=== PATIENT | male | born 1945 | race African-American/Black ===

== ENCOUNTER → 2017-01-20 | Outpatient (CLI) | payer MEDICARE, OTHER ==
[~2017-01-20] MED LIST: AMLODIPINE BESYL5 MG ORAL; ASPIR 8181 MG ORAL; BACTRIM DS TAB1 EAC1 ORAL; CLINDAMYCIN HC300 MG ORAL; IBUPROFEN600 MG ORAL; IRON325 M1 PO; METHADONE HCL10 MG PO; METHADONE HCL5 MG PO; METRONIDAZOLE500 MG ORAL; NORCO 5-325 TA1 EACH ORAL; TERAZOSIN HCL10 MG ORAL
--- NOTE | 2017-01-20 12:34 | Diagnostic Imaging Report ---
Indications: Abdominal pain, hepatitis C Technique: Continuous helical CT imaging of the abdomen and pelvis was performed with automatic exposure control following administration of oral and intravenous nonionic iodine contrast, on a Siemens sensation [address] scanner. Axial, coronal, and sagittal images were reconstructed at 5 mm slice thickness. CTDI volume(s): 15 mGy Total DLP: 663 mGy-cm Findings: Comparison: None Oral contrast has passed throughout the gastrointestinal tract to the level of the ascending colon. Stomach, small bowel nondilated. Appendix unremarkable. Increased feces throughout colon to rectum. No obvious mural thickening, adjacent stranding, extraluminal gas or loculated fluid collections are identified. Minimal free fluid is present in the dependent portion of the pelvis. Liver demonstrates relative enlargement of the lateral segment of its left lobe. Bile ducts mildly dilated, common bile duct measures up to 10 mm in diameter within the pancreatic head. Pancreatic duct dilated to 5 mm. There is a 1 cm nodular soft tissue prominence at the level of the major papilla into which the common bile duct inserts. No associated stone demonstrated. Multiple circumscribed low attenuation foci are scattered throughout a normal size spleen. The largest, 8 mm diameter, has the appearance of a cyst. Smaller lesions are too small to accurately characterize. 15 mm circumscribed low-attenuation mass in lateral limb of left adrenal gland. Left kidney rotated horizontally otherwise unremarkable in appearance. Scattered arterial mural calcifications. Partially distended urinary bladder demonstrates apparent mild diffuse mural thickening. Its floor indented by prominent, heterogeneous prostate. No obvious flow-limiting stenosis or occlusion. Surgical clips and anterior abdominal wall in area of mild diastases of the linea alba. Left rectus abdominis muscle focally atrophic at this level. Small left inguinal hernia contains fat and a small amount of fluid. Remainder visualized abdominopelvic anatomy demonstrates no other obvious abnormality. Small irregular pleural-based linear densities in both lung bases. Multilevel disc space narrowing with marginal osteophyte formation, vacuum phenomenon, facet sclerosis and hypertrophy in lumbar, lower thoracic spine. Impression: Mild dilation of bile and pancreatic ducts to the level of focally prominent major papilla. Acuity is indeterminate. Duct stricture, papillitis, or small neoplasm not excludable. Endoscopic correlation suggested. Minimal ascites, nonspecific No other evidence of acute abdominopelvic disease Liver morphology suggests underlying chronic hepatocellular disease. No evidence of cirrhosis. Multiple splenic lesions, the largest of which appears to represent cyst; smaller indeterminate. Other etiologies including neoplasm not excludable. 1.5 cm left adrenal mass probably but not definitely adenoma. MRI correlation suggested. 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
== END | disposition home or self-care (01) ==
LOC: CAT 09:08
DX: R18.8 Other ascites (principal); D73.89 Other diseases of spleen; N28.83 Nephroptosis; I70.90 Unspecified atherosclerosis; K40.90 Unilateral inguinal hernia, without obstruction or gangrene, not specified as recurrent; M47.9 Spondylosis, unspecified
CPT/HCPCS: 74177; Q9967

== ENCOUNTER 2017-02-03 16:08 | Inpatient (IN) | payer MEDICARE, OTHER ==
[~2017-02-03] VITALS: Ht 182.9 cm; Wt 68.9 kg
[~2017-02-03 16:08] MED LIST changes: -ASPIR 8181 MG ORAL; -IRON325 M1 PO; -METHADONE HCL10 MG PO; -METHADONE HCL5 MG PO; -METRONIDAZOLE500 MG ORAL; -TERAZOSIN HCL10 MG ORAL
[2017-02-03] MEDS ORDERED: Morphine Sulfate 4mg/ml Inj IM ONE (18:15)
[2017-02-03 18:28] LABS: BASOPHILS % (AUTO) 0.5 % (0.0-2.0); LYMPHOCYTES % (AUTO) 4.6 % (20.0-45.0); MEAN CORPUSCULAR HEMOGLOBIN 27.4 PG (27.0-31.0); MEAN CORPUSCULAR VOLUME 86 FL (80-99); MEAN PLATELET VOLUME 5.9 FL (6.5-10.1); PLATELET COUNT 289 K/UL (150-450); RED BLOOD COUNT 3.19 M/UL (4.70-6.10); RED CELL DISTRIBUTION WIDTH 14.9 % (11.6-14.8); WHITE BLOOD COUNT 15.9 K/UL (4.8-10.8)
[2017-02-03 18:43] LABS: ALANINE AMINOTRANSFERASE 10 U/L (3-41); ALBUMIN/GLOBULIN RATIO 0.8 (1.0-2.7); ANION GAP 14 (5-15); ASPARTATE AMINO TRANSFERASE 14 U/L (5-40); CALCIUM 8.7 mg/dL (8.6-10.2); CARBON DIOXIDE 28 mEQ/L (20-30); CHLORIDE 93 mEQ/L (98-107); CREATININE 1.2 mg/dL (0.7-1.2); GLOMERULAR FILTRATION RATE > 60 mL/min (>60); HEMOLYSIS 1; LIPASE 9 U/L (< 60); POTASSIUM 3.7 mEQ/L (3.4-4.9); SODIUM 135 mEQ/L (135-145); TOTAL PROTEIN 6.7 g/dL (6.6-8.7); TROPONIN I < 0.30 ng/mL (<=0.30)
--- NOTE | 2017-02-03 18:44 | Emergency Room Report ---
History of Present Illness General Chief Complaint: Abdominal Pain Source: Patient, Medical Record (Lakshmi Meléndez) Present Illness HPI 71-year-old male presents emergency department complaining of abdominal pain with nausea and vomiting progressive over the course of one week. Patient states that his primary care doctor recommended that he go to the ER for evaluation. Patient has a history of diverticulosis. Patient denies blood in the vomit or stools patient denies black tarry stools. Patient states that he was told that he is anemic and his last hemoglobin was 10. he also states that he was told he has abnormalities with his pancreas. he states that for the course of one week he describes his stomach as distended and "hard like a bag of bricks." Patient denies history of constipation and states he has had a total of 3 loose bowel movements. Patient denies night sweats, fevers, chills or significant changes in weight. Patient denies weakness. Patient states he is having a difficulty time keeping down food and fluids. Patient also reports intermittent heartburn and states he has a history of acid reflux. Pt. reports hx of COPD and smoking. Denies CP, Palpitations, LOC, AMS, dizziness, Changes in Vision, Sensation, paresthesias, or a sudden severe headache. (Lakshmi Meléndez) Allergies: Coded Allergies: No Known Allergies (Unverified , 08/06/15) Patient History Past Medical History: see triage record Past Surgical History: none Pertinent Family History: none Social History: Reports: smoking Immunizations: UTD Reviewed Nursing Documentation: PMH: Agreed, PSxH: Agreed (Lakshmi Meléndez) Nursing Documentation-PMH Hx Hypertension: Yes Hx COPD: Yes - and Emphysema (Lakshmi Meléndez P.ANegar) Review of Systems All Other Systems: negative except mentioned in HPI (Lakshmi Meléndez P.Jen) Physical Exam Vital Signs Date Time Temp Pulse Resp B/P Pulse Ox O2 Delivery O2 Flow Rate FiO2 02/03/17 16:38 98.4 89 16 133/71 99 Room Air Sp02 EP Interpretation: reviewed, normal General Appearance: no apparent distress, alert, GCS 15, non-toxic Head: normocephalic, atraumatic Eyes: bilateral eye PERRL, bilateral eye normal inspection ENT: hearing grossly normal, normal pharynx, no angioedema, normal voice Neck: full range of motion, supple/symm/no masses Respiratory: chest non-tender, lungs clear, normal breath sounds, speaking full sentences, wheezing - scant bilateral expiratory wheezes Cardiovascular #1: regular rate, rhythm, no edema Gastrointestinal: normal bowel sounds - hyperactive bowel sounds in all 4 quadrants, non tender, no pulsatile mass, no rebound, guarding, other - no peritoneal signs, abdomen is not appreciably distended, pt. is guarding. Rectal: deferred Genitourinary: normal inspection, no CVA tenderness Musculoskeletal: back normal, gait/station normal, normal range of motion, non- tender, no calf tenderness Neurologic: alert, oriented x3, responsive, motor strength/tone normal, sensory intact, cerebellar normal, normal gait, speech normal Psychiatric: judgement/insight normal, memory normal, mood/affect normal, no suicidal/homicidal ideation Skin: normal color, no rash, warm/dry, well hydrated Lymphatic: no adenopathy (Lakshmi Meléndez.Jen) Medical Decision Making PA Attestation Dr. Zafar is my supervising Physician whom patient management has been discussed with. (Lakshmi Meléndez P.ANegar) Medicare Attestation Please refer to the initial note for the history examined the presentation I do agree with Lakshmi's workup and evaluation And the patient will be amended for further inpatient care (BANDAR ZAFAR D.O.) Diagnostic Impression: Primary Impression: Abdominal pain Qualified Codes: R10.84 - Generalized abdominal pain Additional Impressions: Anemia Qualified Codes: D64.9 - Anemia, unspecified Leukocytosis Qualified Codes: D72.829 - Elevated white blood cell count, unspecified ER Course 71-year-old male presents emergency department complaining of abdominal pain with nausea and vomiting progressive over the course of one week. Patient states that his primary care doctor recommended that he go to the ER for evaluation. Patient has a history of diverticulosis. Patient denies blood in the vomit or stools patient denies black tarry stools. Patient states that he was told that he is anemic and his last hemoglobin was 10. he also states that he was told he has abnormalities with his pancreas. he states that for the course of one week he describes his stomach as distended and "hard like a bag of bricks." Patient denies history of constipation and states he has had a total of 3 loose bowel movements. Patient denies night sweats, fevers, chills or significant changes in weight. Patient denies weakness. Patient states he is having a difficulty time keeping down food and fluids. Patient also reports intermittent heartburn and states he has a history of acid reflux. Ddx considered but are not limited to Diverticulitis/losis, acute appendicitis, diarrhea, UC, PUD, GE, pancreatitis, gallstone, hepatitis Vital signs: are WNL, pt. is afebrile, non tachycardic, non-tachypneic, NAD H&PE are most consistent with ORDERS: -EK BPM NSR, no acute ST changes, interpreted by Dr. Zafar. CBC,: Leukocytosis at 15.6, anemia hb 8.4 CMP: mild Hypochloremia. Lipase: WNL (9) UA: few yeast and bacteria -Troponin: WNL less than 0.3 - CK-MB: unremarkable -Total Ck: unremarkable -CXR: Pending - Blood Cultures x 2 : Pending - US abdominal Complete: dilated CBD no stones, intrahepatic ducts dilatations, no GB stones, no free Fluid, negative murphys. ED INTERVENTIONS: -Pt. is a difficult draw, and required lab draw. -4mg Zofran PO -4Mg Morphine IM -500cc NS- Pending, IV access required - Unasyn IV- Pending, IV access required DISPOSITION: at this time pt. will be admitted to Dr. Morfin for abdominal pain , leukocytosis, and anemia. Dr. Morfin agreed to admit the pt. and to continue pt. care management. Labs Test 02/03/17 18:00 02/03/17 18:21 Urine Color Astrid Urine Appearance Clear Urine pH 5 (4.5-8.0) Urine Specific [place] 1.020 (1.005-1.035) Urine Protein 2+ (NEGATIVE) Urine Glucose (UA) Negative (NEGATIVE) Urine Ketones 1+ (NEGATIVE) Urine Occult Blood 2+ (NEGATIVE) Urine Nitrite Negative (NEGATIVE) Urine Bilirubin 1+ (NEGATIVE) Urine Ictotest Negative Urine Urobilinogen 1 MG/DL (0.0-1.0) Urine Leukocyte Esterase 1+ (NEGATIVE) Urine RBC 2-4 /HPF (0 - 0) Urine WBC 0-2 /HPF (0 - 0) Urine Squamous Epithelial Cells None /LPF (NONE/OCC) Urine Amorphous Sediment Few /LPF (NONE) Urine Bacteria Few /HPF (NONE) Urine Yeast Occasional /HPF (NONE) White Blood Count 15.9 K/UL (4.8-10.8) Red Blood Count 3.19 M/UL (4.70-6.10) Hemoglobin 8.7 G/DL (14.2-18.0) Hematocrit 27.3 % (42.0-52.0) Mean Corpuscular Volume 86 FL (80-99) Mean Corpuscular Hemoglobin 27.4 PG (27.0-31.0) Mean Corpuscular Hemoglobin Concent 32.0 G/DL (32.0-36.0) Red Cell Distribution Width 14.9 % (11.6-14.8) Platelet Count 289 K/UL (150-450) Mean Platelet Volume 5.9 FL (6.5-10.1) Neutrophils (%) (Auto) 82.0 % (45.0-75.0) Lymphocytes (%) (Auto) 4.6 % (20.0-45.0) Monocytes (%) (Auto) 12.0 % (1.0-10.0) Eosinophils (%) (Auto) 1.0 % (0.0-3.0) Basophils (%) (Auto) 0.5 % (0.0-2.0) Prothrombin Time 11.7 SEC (9.30-11.50) Prothromb Time International Ratio 1.1 (0.9-1.1) Activated Partial Thromboplast Time 30 SEC (23-33) Sodium Level 135 mEQ/L (135-145) Potassium Level 3.7 mEQ/L (3.4-4.9) Chloride Level 93 mEQ/L (98-107) Carbon Dioxide Level 28 mEQ/L (20-30) Anion Gap 14 (5-15) Blood Urea Nitrogen 13 mg/dL (7-23) Creatinine 1.2 mg/dL (0.7-1.2) Estimat Glomerular Filtration Rate > 60 mL/min (>60) Glucose Level 89 mg/dL (74-106) Calcium Level 8.7 mg/dL (8.6-10.2) Total Bilirubin 0.3 mg/dL (0.0-1.2) Aspartate Amino Transf (AST/SGOT) 14 U/L (5-40) Alanine Aminotransferase (ALT/SGPT) 10 U/L (3-41) Alkaline Phosphatase 67 U/L (40-129) Total Creatine Kinase 189 U/L (38-174) Creatine Kinase MB 2.2 ng/mL (< 6.7) Creatine Kinase MB Relative Index 1.1 Troponin I < 0.30 ng/mL (<=0.30) Total Protein 6.7 g/dL (6.6-8.7) Albumin 3.1 g/dL (3.5-5.2) Globulin 3.6 g/dL Albumin/Globulin Ratio 0.8 (1.0-2.7) Lipase 9 U/L (< 60) (Lakshmi Meléndez) EKG Diagnostic Results EP Interpretation: by Dr. Zafar Rate: normal - 68 BPM Rhythm: NSR ST Segments: no acute changes ASA given to the pt in ED: No PA Scribe Text interpreted by Dr. Zafar (Lakshmi Meléndez) Last Vital Signs Date Time Temp Pulse Resp B/P Pulse Ox O2 Delivery O2 Flow Rate FiO2 02/03/17 16:38 98.4 89 16 133/71 99 Room Air (Lakshmi Meléndez) Disposition: ADMITTED INPATIENT Condition: Serious Referrals: KINGSTON MORFIN (PCP) Lakshmi Meléndez Feb 03, 2017 18:44 BANDAR ZAFAR D.O. Feb 03, 2017 19:39
[2017-02-03 18:51] LABS: APPEARANCE,URINE CLEAR; KETONES,URINE 1+ (NEGATIVE); LEUKOCYTE ESTERASE ,URINE 1+ (NEGATIVE); NITRITE,URINE NEGATIVE (NEGATIVE); PH,URINE 5 (4.5-8.0); PROTEIN,URINE 2+ (NEGATIVE); UROBILINOGEN,URINE 1 MG/DL (0.0-1.0)
[2017-02-03 18:53] LABS: CKMB 2.2 ng/mL (< 6.7)
[2017-02-03 18:59] LABS: AMORPHOUS SEDIMENT,UR FEW /LPF; BACTERIA,URINE FEW /HPF; WBC,URINE 0-2 /HPF (0 - 0)
[2017-02-03 19:00] LABS: ICTOTEST NEGATIVE; YEAST,URINE OCCASIONAL /HPF
[2017-02-03 19:39] LABS: INR 1.1 (0.9-1.1); PROTHROMBIN TIME 11.7 SEC (9.30-11.50)
[2017-02-03 19:52] VITALS: BP 122/67
[2017-02-03] MEDS ORDERED: Piperacillin/Tazobactam 3.375 GM in NS 110 ML IVPB ONE (20:15)
[2017-02-03 23:40] VITALS: BP 122/65
[2017-02-04] VITALS (7 sets, daily range): BP systolic 117–137; BP diastolic 65–84
[2017-02-04] MEDS ORDERED: Zosyn 3.375gm inj ONE (00:06)
[2017-02-04] MEDS ORDERED: IRON325 M1 PO (02:19)
[2017-02-04] MEDS ORDERED: METHADONE HCL10 MG PO (02:19)
[2017-02-04] MEDS ORDERED: ASPIR 8181 MG ORAL (02:19)
[2017-02-04] MEDS ORDERED: TERAZOSIN HCL10 MG ORAL (02:19)
[2017-02-04] MEDS ORDERED: DuoNeb 0.5-3(2.5)mg/3ml neb HHN PRN (04:00)
[2017-02-04 08:55] LABS: BASOPHILS % (AUTO) 0.5 % (0.0-2.0); EOSINOPHILS % (AUTO) 1.7 % (0.0-3.0); LYMPHOCYTES % (AUTO) 8.3 % (20.0-45.0); MEAN CORPUSCULAR HEMOGLOBIN 26.1 PG (27.0-31.0); MEAN CORPUSCULAR HGB CONC 30.3 G/DL (32.0-36.0); MEAN CORPUSCULAR VOLUME 86 FL (80-99); MONOCYTES % (AUTO) 15.5 % (1.0-10.0); PLATELET COUNT 334 K/UL (150-450); RED BLOOD COUNT 3.29 M/UL (4.70-6.10); RED CELL DISTRIBUTION WIDTH 14.6 % (11.6-14.8)
[2017-02-04] MEDS: Heparin 5000 units/ml inj SUBQ SCH ×2 (09:00→20:20)
[2017-02-04 09:13] LABS: FERRITIN 92 ng/mL (10-230); PSA TOTAL 1.8 ng/mL (< 4.5)
[2017-02-04 09:25] LABS: ALANINE AMINOTRANSFERASE 9 U/L (3-41); ALBUMIN/GLOBULIN RATIO 0.8 (1.0-2.7); ANION GAP 15 (5-15); ASPARTATE AMINO TRANSFERASE 12 U/L (5-40); CALCIUM 8.5 mg/dL (8.6-10.2); CARBON DIOXIDE 27 mEQ/L (20-30); CHLORIDE 96 mEQ/L (98-107); CHOLESTEROL 91 mg/dL (< 200); CHOLESTEROL/HDL RATIO 3.5 (3.3-4.4); CREATININE 1.1 mg/dL (0.7-1.2); GLOMERULAR FILTRATION RATE > 60 mL/min (>60); LDL CHOLESTEROL (CALC.) 52 mg/dL (60-99); POTASSIUM 3.8 mEQ/L (3.4-4.9); SODIUM 138 mEQ/L (135-145); TOTAL PROTEIN 6.3 g/dL (6.6-8.7)
[2017-02-04] MEDS ORDERED: METHADONE HCL5 MG PO (10:22)
--- NOTE | 2017-02-04 11:24 | Diagnostic Imaging Report ---
Indication: Right upper quadrant pain, nausea, vomiting Technique: Gooden-scale and duplex images of the upper abdomen were obtained Comparison: Reference made to CT scan of 01/20/2017 Findings: . Gallbladder is unremarkable, without stones, wall thickening, nor pericholecystic fluid. Sonographic Zambrano's sign is negative. Common bile duct measures 10 mm in diameter. There is central intrahepatic biliary ductal dilatation.. Liver demonstrates normal echogenicity, no focal abnormality. Portal vein and hepatic veins are patent.. Pancreas is obscured by bowel gas. Spleen is unremarkable. Left kidney measures 11 cm in length. Right kidney measures 10.7 cm length. Both kidneys demonstrate normal echogenicity. There is no hydronephrosis. No focal abnormality. Abdominal aorta is partially obscured by bowel gas, visualized portions are non-aneurysmal. Impression: Biliary ductal dilatation, etiology not demonstrated. Also described on prior CT scan Negative for gallstones No other significant abnormality Note inability to visualized portions of the pancreas and abdominal aorta
--- NOTE | 2017-02-04 11:39 | Diagnostic Imaging Report ---
Indication: COUGH Technique: One view of the chest Comparison: 02/21/2015 Findings: Lungs and pleural spaces are clear. Heart size is normal. Aorta is tortuous. No significant change Impression: No acute process
--- NOTE | 2017-02-04 15:06 | Diagnostic Imaging Report ---
Indication: MASS abdominal and pelvic pain Technique: Coronal and axial T1 fast spin echo, coronal and axial FSE IR, sagittal and axial T2 FRFSE, coronal T2 FRFSE with fat saturation images of the pelvis. No IV contrast, per referring physician request Comparison: Reference made to CT abdomen pelvis dated 01/20/2017 Findings: Enteric structures are better appreciated on prior CT scan. There is a small amount of fluid within the pelvis that was not evident previously. The prostate measures 3.5 cm transverse by 2.5 cm AP by 3.6 cm craniocaudad. High T2 signal is seen within the subcutaneous fat of the bilateral buttocks, as well as extending into the superficial gluteal musculature.. Similar signal abnormality is also seen in the right hip. There is thickening and increased T2, decreased T1 signal of the scrotal wall, best appreciated on coronal images. Impression: Increased T2 signal within the subcutaneous fat of the bilateral buttocks, extending into the gluteal musculature, with similar findings also in the lateral right hip. Note that edema in this area is also demonstrated in retrospect on prior CT scan. Findings are nonspecific, could represent dependent edema versus cellulitis/myositis. Correlate with clinical findings Free pelvic fluid. Of uncertain significance, but not physiologic in a male patient. Heterogeneous signal within the prostate centrally, likely represents mild benign prostatic hypertrophy changes. Scrotal wall edema. Correlate with clinical findings
[2017-02-04] MEDS: Aspirin Baby 81mg ORAL SCH (15:14)
--- NOTE | 2017-02-04 16:35 | Diagnostic Imaging Report ---
Indication: Abdominal pain, history of hepatitis C, biliary ductal dilatation and left adrenal nodule seen on prior CT scan Technique: Coronal and axial single shot fast spin-echo breath-hold, axial T2 FRFSE, 2-D thick slab MRCP, AXIAL 2-D FIESTA fat saturated, axial 3-D dual echo breath-hold, water weighted axial LAVA FLEX, revealed 3-D MRCP images were obtained of the abdomen. MIP reconstructions were generated of the bile ducts. No IV contrast, per referring physician request Comparison: Abdomen pelvis CT dated 01/20/2017 Findings: The common bile duct is dilated, measures 10 mm diameter. Dilatation extends to the level of the ampulla. No definite intraluminal stone. No definite ampullary mass demonstrated. The pancreatic duct is also mildly dilated, also demonstrated on prior CT. Is likewise central intrahepatic biliary ductal dilatation. The gallbladder demonstrates versus stones or wall thickening or pericholecystic fluid or inflammation. There is a cyst within segment 2 of the liver. This measures under 1 cm diameter. Areas of high T2 signal are seen within the spleen, measuring under 1 cm diameter, corresponding to low-attenuation lesions described on recent CT Previously demonstrated left adrenal nodule is not well visualized on the available images. Conclusions Re: signal characteristics could therefore not be made. The pancreas and kidneys are unremarkable. The lung bases are grossly clear. The heart size is normal. Impression: The left adrenal nodule described on recent CT is insufficiently well demonstrated on MRI to further characterize. This therefore remains nonspecific although statistically most likely a benign adenoma Previously demonstrated low attenuation splenic lesions seen on prior CT have uniformly high T2 signal on MRI, consistent with benign cysts Extrahepatic and central intrahepatic biliary ductal dilatation, with dilatation extending to the level of the ampulla. Etiology uncertain, as no definite obstructing lesion is identified. Recommend correlation with liver function tests. Nuclear medicine hepatobiliary scan may be useful for assessing for patency of the common bile duct Negative for gallstones Left lobe liver cyst incidentally noted
--- NOTE | 2017-02-04 22:34 | General Progress Note ---
Assessment/Plan Assessment/Plan Assessment - Adrenal nodule - Benign appearance on MRI - (R) hip pain - Self Rx with IM street drugs in buttocks "to control pain" - recent buttock infection --> abx - loose BM - r/o C Diff Recommendations - check pancreatic tumor markers - Endoscopic ultrasound Th am - outpatient EGD/Colon - consider pain management consult Subjective Allergies: Coded Allergies: No Known Allergies (Unverified , 08/06/15) Objective Last 24 Hour Vital Signs Date Time Temp Pulse Resp B/P Pulse Ox O2 Delivery O2 Flow Rate FiO2 02/04/17 20:00 99.1 70 20 118/69 95 Room Air 02/04/17 16:00 98.2 75 20 117/67 98 Room Air 02/04/17 12:00 97.0 54 18 122/65 95 Room Air 02/04/17 09:00 75 117/67 02/04/17 08:00 98.1 69 20 117/69 98 Room Air 02/04/17 04:00 98.3 78 18 128/76 96 Room Air 02/04/17 00:50 98.4 87 18 137/84 92 Room Air 02/04/17 00:25 98.2 71 15 125/68 98 Room Air 02/04/17 00:25 98.2 71 15 125/68 98 Room Air 02/03/17 23:40 98.0 69 16 122/65 98 Room Air Intake and Output 02/03/17 02/04/17 19:00 07:00 Intake Total 0 ml Balance 0 ml Intake Oral 0 ml # Voids 1 Laboratory Tests 02/04/17 05:50: White Blood Count 13.0H, Red Blood Count 3.29L, Hemoglobin 8.6L, Hematocrit 28.3L, Mean Corpuscular Volume 86, Mean Corpuscular Hemoglobin 26.1L, Mean Corpuscular Hemoglobin Concent 30.3L, Red Cell Distribution Width 14.6, Platelet Count 334, Mean Platelet Volume 6.0L, Neutrophils (%) (Auto) 74.0, Lymphocytes (%) (Auto) 8.3L, Monocytes (%) (Auto) 15.5H, Eosinophils (%) (Auto) 1.7, Basophils (%) (Auto) 0.5, Sodium Level 138, Potassium Level 3.8, Chloride Level 96L, Carbon Dioxide Level 27, Anion Gap 15, Blood Urea Nitrogen 13, Creatinine 1.1, Estimat Glomerular Filtration Rate > 60, Glucose Level 76, Calcium Level 8.5L, Ferritin 92, Total Bilirubin 0.3, Aspartate Amino Transf ( AST/SGOT) 12, Alanine Aminotransferase (ALT/SGPT) 9, Alkaline Phosphatase 95, Total Protein 6.3L, Albumin 2.9L, Globulin 3.4, Albumin/Globulin Ratio 0.8L, Triglycerides Level 67, Cholesterol Level 91, LDL Cholesterol 52L, HDL Cholesterol 26, Cholesterol/HDL Ratio 3.5, Prostate Specific Antigen 1.8, Thyroid Stimulating Hormone (TSH) 2.330 02/04/17 09:29: Iron Level 16L, Total Iron Binding Capacity 218L, Percent Iron Saturation 7L, Unsaturated Iron Binding 202, Carcinoembryonic Antigen 3.7H, Vitamin B12 Level 1725H, Folate [Pending] Height (Feet): 6 Weight (Pounds): 152 CHIDIDEJUAN REYES Feb 04, 2017 22:34
--- NOTE | 2017-02-04 23:58 | History and Physical Report ---
DATE OF ADMISSION: 02/03/2017 HISTORY OF PRESENT ILLNESS: The patient is a very pleasant, 71-year-old male with history of chronic obstructive pulmonary disease smoker and history of hepatitis C followed and treated by Dr. Efrain Lancaster, who presented to my office yesterday with complaints of severe abdominal pain. Unable to tolerate any orals, feeling nauseated, and vomiting. No hematemesis. No changes in bowel habits. No BRBPR. No melena no chest pain or shortness of breath. No fevers or chills. No urinary symptoms. Due to his symptomatology, he was sent for admission. PAST MEDICAL HISTORY: Includes a history of chronic obstructive pulmonary disease, history of hepatitis C for which he was treated, history of TB for which he was treated for 6 months in the year 1999, history of hypertension. No history of diabetes or cholesterol problems. 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 MEDICATIONS: Please see his reconciled medication list. ALLERGIES: No known drug allergies. FAMILY HISTORY: Father of stomach cancer at age of 62. Mother of respiratory failure from smoking. SOCIAL HISTORY: The patient smokes on a daily basis. Despite multiple talks with him, he was given Chantix, however, has returned to smoking again. Admits to social drinking alcohol. He is chronically on methadone. He has a history of heroin use. REVIEW OF SYSTEMS: No headaches. No sore throat. Denies any shortness of breath. No chest pain. Admits to coughing from smoking. His breathing is at his baseline. Twelve point review of systems reviewed and negative except for above. PHYSICAL EXAMINATION: GENERAL: The patient is a well developed, well nourished, no apparent distress. VITAL SIGNS: Revealed a blood pressure of 122/65, respirations 18, saturations 95% room air, temperature 97 degrees, and pulse 54. HEENT: Head is normocephalic and atraumatic. Pupils are equal and reactive to light. Extraocular muscles are intact. Eyes are anicteric. Conjunctivae are pale. LUNGS: He has got decreased breath sounds. HEART: Regular rate and rhythm. ABDOMEN: He does have some tenderness mostly epigastric pain. No rebound or guarding. EXTREMITIES: No clubbing, cyanosis, or edema. NEUROLOGIC: He is alert and oriented. Nonfocal. LABORATORY AND DIAGNOSTIC DATA: Revealed a sodium of 138, potassium 3.8, chloride 96, BUN of 13, and creatinine 1.1. Albumin is 2.9. Total protein is 6.3. CEA is 3.7. Vitamin B12 is 1725. Iron is 16. TIBC is 218. Percent saturation is 7. White count 13, hemoglobin 8.6, hematocrit 28.3, and platelet count of 334,000. Urinalysis reveals 0 to 2 WBCs, 2 to 4 RBCs, 1+ leukocyte esterase, 2+ blood, 1+ ketones, and 1+ bilirubin. Chest x-ray reveals lungs and pleural spaces are clear. Heart size is normal. Aorta is tortuous. No significant change. His abdominal ultrasound reveals biliary ductal dilatation, etiology not demonstrated also described on prior CT, negative for gallstones. ASSESSMENT AND PLAN: The patient is a 71-year-old male smoker, history of chronic obstructive pulmonary disease and history of hepatitis C treated, who presented to my office with severe abdominal pain, nausea and vomiting. Unable to hold fluids. The patient was admitted. Laboratories are as noted. The patient will be given intravenous fluids, given antiemetics. I have ordered an MRI and MRCP. I have asked Dr. Lancaster, his dermatology nurse to see the patient. We will continue his medications as he is taking. Place him on DVT and ulcer prophylaxis. Farhat Welsh M.D. : GABRIELLE JOB#: [id number] CC:
[2017-02-05] VITALS: BP 131/73
[2017-02-05 04:00] VITALS: BP 139/70
--- NOTE | 2017-02-05 05:58 | Consultation ---
DATE OF CONSULTATION: 02/04/2017 NOTE: "POOR AUDIO QUALITY" GASTROLOGY CONSULTATION CONSULTING PHYSICIAN: Carla Lancaster M.D. CHIEF COMPLAINT: I was asked to see this patient by Dr. Farhat Welsh for evaluation of abdominal issues. HISTORY OF PRESENT ILLNESS: The patient is a pleasant 71-year-old man with a history of hepatitis C, which was successfully treated. who comes in to the hospital with a four-day history of abdominal cramps and vomiting and subsequent diarrhea. The patient has not had any bleeding tendencies or hematochezia. The patient actually feels better today. He also was seen recently as an outpatient iron-deficient anemia and was scheduled for endoscopy and colonoscopy, which was actually supposed to be done tomorrow. However, the patient in the hospital will have to be postponed. The patient also has a mildly elevated CEA level, which raises concern for possible malignancy. The patient also had a CT scan as an outpatient showing abnormality in the pancreas and also adrenal area and was trying to get workup for that. PAST MEDICAL HISTORY: History of iron-deficiency anemia with the workup pending, hypertension, hepatitis C, which is cured, COPD, benign prostatic hypertrophy, diverticulosis, and history of narcotic dependence. The patient was previously, a month ago, he started using intramuscular heroin, history of degenerative joint disease of the spine with chronic low back pain. PAST SURGICAL HISTORY: History of right inguinal hernia surgery, tonsillectomy, and history of eye surgery. ALLERGIES: No known drug allergies. FAMILY HISTORY: Positive for respiratory problems in the mother. His son is also . SOCIAL HISTORY: The patient is single. He is a . He has three children. He smokes one and half pack a day of cigarettes and drinks occasionally. He previously had a history of IVDA, which he stopped. However, about a month ago because of right hip pain, the patient started using intramuscular heroin for pain control. He had some infection in that area and subsequently was placed on antibiotics for the past month. He states that he has been taking Keflex daily, although the instructions . PHYSICAL EXAMINATION: GENERAL: The patient is a pleasant man, seen in his room. HEENT: Normocephalic and atraumatic. Sclerae anicteric. Oropharynx clear. Dentition is poor. NECK: Supple. CHEST: Clear to auscultation. CARDIOVASCULAR: Revealed regular rate. ABDOMEN: Soft with good bowel sounds. There is no organomegaly. EXTREMITIES: No edema. LABORATORY DATA: Noted. ASSESSMENT: This patient presents with abnormality in the pancreas area, which is going to be evaluated with endoscopic ultrasound, which will be done in the next few days. The patient also had a suspected abnormality on the renogram, but the MRI . He will not require any further workup at this time. The patient also has iron-deficiency anemia with elevated CEA. He has been advised strongly to establish another appointment for outpatient endoscopy and colonoscopy and follow through this time. RECOMMENDATIONS: Per above discussion and per orders written in the chart. Thank you for asking me to participate in the care of this patient. Carla Lancaster M.D. DR: Kvng JOB#: [id number] CC:
[2017-02-05 08:00] VITALS: BP 126/67
[2017-02-05] MEDS: Heparin 5000 units/ml inj SUBQ SCH ×3 (09:00→20:50)
[2017-02-05 09:16] VITALS: BP 133/72
[2017-02-05] MEDS: Aspirin Baby 81mg ORAL SCH (09:33)
[2017-02-05 12:00] VITALS: BP 120/75
[2017-02-05 16:00] VITALS: BP 108/61
[2017-02-05] MEDS: Iron Sucrose 100 MG in NS 55 ML IVPB SCH (20:48)
--- NOTE | 2017-02-05 22:35 | General Progress Note ---
Assessment/Plan Assessment/Plan Assessment - Adrenal nodule - Benign appearance on MRI - (R) hip pain - Self Rx with IM street drugs in buttocks "to control pain" - recent buttock infection --> abx - loose BM - r/o C Diff - possible ampullary lesion Recommendations - check pancreatic tumor markers - Endoscopic ultrasound Th am - outpatient EGD/Colon - consider pain management consult Subjective Allergies: Coded Allergies: No Known Allergies (Unverified , 08/06/15) Subjective Feels OK no new complaints d/w patient re MRI findings EUS scheduled for am Objective Last 24 Hour Vital Signs Date Time Temp Pulse Resp B/P Pulse Ox O2 Delivery O2 Flow Rate FiO2 02/05/17 19:33 60 18 Room Air 02/05/17 16:00 96.7 61 18 108/61 97 Room Air 02/05/17 12:00 97.0 70 14 120/75 98 Room Air 02/05/17 09:35 72 133/72 02/05/17 09:16 72 133/72 02/05/17 08:00 97.9 68 15 126/67 95 Room Air 02/05/17 07:09 78 18 Room Air 02/05/17 04:00 97.5 55 18 139/70 99 Room Air 02/05/17 00:00 97.3 71 18 131/73 93 Room Air 02/04/17 23:44 64 18 Room Air Intake and Output 02/04/17 02/05/17 19:00 07:00 Intake Total 840 ml 960 ml Balance 840 ml 960 ml Intake Oral 840 ml 960 ml # Voids 2 2 # Bowel Movements 2 Laboratory Tests 02/05/17 07:00: Stool Occult Blood [Pending] Height (Feet): 6 Weight (Pounds): 152 Objective WDWN NCAT supple CTA RRR Abd soft ND NT no edema DEJUAN FERNANDES Feb 05, 2017 22:35
--- NOTE | 2017-02-05 22:46 | Diagnostic Imaging Report ---
APPROVED REPORT CPT Code: 58442 Present Symptoms Shortness of breath BILATERAL: Imaging reveals a patent deep venous system bilaterally. There is no evidence of thrombus within the femoral, popliteal or tibial segments. The greater saphenous veins are also within normal limits. Doppler indicates normal spontaneous flow within these segments.
[2017-02-06] VITALS (10 sets, daily range): BP systolic 103–148; BP diastolic 64–79
--- NOTE | 2017-02-06 08:22 | Anethesia Preoperative Eval ---
Anesthesia Pre-op PMH/ROS General Date of Evaluation: Feb 06, 2017 Anesthesiologist: Carlin ASA Score: ASA 3 Mallampati Score Class I : Soft palate, uvula, fauces, pillars visible Class II: Soft palate, uvula, fauces visible Class III: Soft palate, base of uvula visible Class IV: Only hard plate visible Mallampati Classification: Class II Surgeon: Jocelin Diagnosis: ? Pancreatic mas Surgical Procedure: EGD and EUS Anesthesia History: none Social History: current smoker - 1.5 ppd, drug use - h/o IVDA, restarted doing heroin one month ago Family History: no anesthesia problems Allergies: Coded Allergies: No Known Allergies (Unverified , 08/06/15) Medications: see eMAR Past Medical History Cardiovascular: Reports: HTN, Denies: CAD, HI, arrhythmia, other, valve dz Pulmonary: Reports: COPD, Denies: LUIS MANUEL, asthma, other Gastrointestinal/Genitourinary: Reports: ESRD, other - BPH, ? pancreatic mass, Denies: CRI, GERD Neurologic/Psychiatric: Denies: CVA, TIA, dementia, depression/anxiety, other Endocrine: Denies: DM, hypothyroidism, other, steroids HEENT: Denies: ALTURAS (L), ALTURAS (R), cataract (L), cataract (R), glaucoma, other Hematology/Immune: Reports: anemia - chronic, other - hep C, Denies: DVT, bleeding disorder Musculoskeletal/Integumentary: Reports: DJD, Denies: DDD, OA, RA, edema, other PSxH Narrative: RIHR, T&A, eye sx Anesthesia Pre-op Phys. Exam Physician Exam Last Vital Signs Date Time Temp Pulse Resp B/P Pulse Ox O2 Delivery O2 Flow Rate FiO2 02/06/17 04:00 97.9 66 19 120/66 98 Room Air Constitutional: NAD Cardiovascular: RRR Respiratory: CTA Airway Exam Mallampati Score: Class II Anesthesia Pre-op A/P Labs see chart Studies Pre-op Studies: EKG - sr Risk Assessment & Plan Assessment: ASA III Plan: MAC Status Change Before Surgery: No Pre-Antibiotics Drug: N/A ARTIS ABREU M.D. Feb 06, 2017 08:22
[2017-02-06] MEDS: Heparin 5000 units/ml inj SUBQ SCH ×2 (09:00→20:27)
[2017-02-06] MEDS: Aspirin Baby 81mg ORAL SCH (09:13)
[2017-02-06 10:09] LABS: ANION GAP 10 (5-15); CALCIUM 8.9 mg/dL (8.6-10.2); CARBON DIOXIDE 32 mEQ/L (20-30); CHLORIDE 97 mEQ/L (98-107); CREATININE 1.1 mg/dL (0.7-1.2); GLOMERULAR FILTRATION RATE > 60 mL/min (>60); HEMOLYSIS 0; POTASSIUM 4.3 mEQ/L (3.4-4.9); SODIUM 139 mEQ/L (135-145)
[2017-02-06] MEDS ORDERED: NS 550ML IV ONE (11:10)
[2017-02-06] MEDS ORDERED: NS Irrig 1000ml ONE (11:15)
[2017-02-06] MEDS ORDERED: Lidocaine 1% MPF 10mg/ml 5ml ONE (11:15)
[2017-02-06] MEDS ORDERED: DiphenhydrAMINE 50mg/ml Inj ONE (11:15)
[2017-02-06] MEDS ORDERED: Propofol 10mg/ml 20ml IV ONE (11:15)
--- NOTE | 2017-02-06 11:23 | Pre-Procedure Note/Attestation ---
Pre-Procedure Note/Attestation Complete Prior to Procedure Planned Procedure: not applicable Procedure Narrative: eus Indications for Procedure Pre-Operative Diagnosis: dilated CBD Attestation I attest that I discussed the nature of the procedure; its benefits; risks and complications; and alternatives (and the risks and benefits of such alternatives ), prior to the procedure, with the patient (or the patient's legal career representative). I attest that, if there was a reasonable possibility of needing a blood transfusion, the patient (or the patient's legal career representative) was given the [facility] standardized written summary, pursuant to the Satinder Candelaria Blood Safety Act ([place] Health and Safety Code # 1645, as amended). I attest that I re-evaluated the patient just prior to the surgery and that there has been no change in the patient's H&P, except as documented below: KAY GARCIA Feb 06, 2017 11:23
--- NOTE | 2017-02-06 11:52 | Endoscopy Procedure Note ---
Endoscopy Procedure Note Indication for Procedure: dilated CBD Procedures Performed: other - EUS Operative Findings/Diagnosis: same Specimen: none Pt Tolerated Procedure Well: Yes Estimated Blood Loss: none Anesthesiologist: rosalind Anesthesia: MAC Implant(s) used?: No 50 yrs or older w/o bx or poly: Not Applicable 10yrs. F/U not recommended: Not Applicable KAY GARCIA Feb 06, 2017 11:52
--- NOTE | 2017-02-06 12:07 | Immediate Post-Op Evaluation ---
Immediate Post-Op Evalulation Immediate Post-Op Evalulation Procedure: EGD/EUS Date of Evaluation: Feb 06, 2017 Time of Evaluation: 12:00 IV Fluids: 300 Blood Pressure Systolic: 121 Blood Pressure Diastolic: 74 Pulse Rate: 89 Respiratory Rate: 14 O2 Sat by Pulse Oximetry: 99 Temperature (Fahrenheit): 97.8 Nausea: No Vomiting: No Complications none Patient Status: awake, reacts Hydration Status: adequate Drug: none ESTRELLA BRICE CRNA Feb 06, 2017 12:07
--- NOTE | 2017-02-06 12:08 | 48 Hour Post Anesthesia Eval ---
Post Anesthesia Evaluation Procedure: EGD/EUS Date of Evaluation: Feb 06, 2017 Time of Evaluation: 12:08 Blood Pressure Systolic: 114 0: 65 Pulse Rate: 75 Respiratory Rate: 14 O2 Sat by Pulse Oximetry: 99 Airway: patent Nausea: No Vomiting: No Hydration Status: adequate Mental Status/LOC: patient returned to baseline Follow-up Care/Observations: na Post-Anesthesia Complications: none Follow-up care needed: N/A ESTRELLA BRICE CRNA Feb 06, 2017 12:08
--- NOTE | 2017-02-06 14:10 | Cardiology Report ---
APPROVED REPORT EKG Measurement Heart [id number] Normal sinus rhythm with sinus arrhythmia Septal infarct, age undetermined Abnormal ECG
[2017-02-06] MEDS: Chloraseptic Spray 20mL Bottle ORAL PRN (18:57)
[2017-02-06] MEDS: Iron Sucrose 100 MG in NS 55 ML IVPB SCH (20:27)
--- NOTE | 2017-02-06 20:38 | Procedure Note ---
DATE OF PROCEDURE: 02/06/2017 SURGEON: Walter Monreal M.D. PROCEDURE: Endoscopic ultrasound. ANESTHESIA: Per INSPECTOR TYPE, Randi Smart. INSTRUMENT: Olympus EUS scope. INDICATION: Dilated common bile duct and pancreatic duct, rule out ampullary mass. REASON FOR PROCEDURE: The procedure, risks, benefits, and possible consequences, including hemorrhage, aspiration, perforation and infection, and alternative treatments, were explained to the patient/legal guardian by Dr. Walter Monreal and the patient/legal guardian understood and accepted these risks. DESCRIPTION OF PROCEDURE: After informed consent was obtained and the patient was adequately sedated, EUS radial scope was advanced from mouth into the second portion of the duodenum and pancreatic parenchyma was carefully examined through the gastroduodenal mucosa. Starting the scanning at GE junction, celiac axis was located. There was no evidence of obvious celiac axis lymphadenopathy, but the patient had some prominent vessels at this celiac area suspicious for gastric varices. There was an abnormal dilation of the portal vein confluence with the splenic vein was extremely dilated at the site of the portal vein. Pancreatic parenchyma in the body and tail is grossly within normal limit. Overall, the pancreatic duct was dilated at the head of the pancreas and the ampulla was 4.5 mm and around the genu was 4.1 and was smaller in the tail of the pancreas. Common bile duct was not significantly dilated. Common bile duct was measured 5.5 mm and the ampulla was 5.5 and then the body was 5.4 mm. There was no obvious stone in the common bile duct. No ampullary mass was seen. The patient tolerated the procedure without any complication. SUMMARY OF FINDINGS: 1. Prominent vessel at the celiac axis area suspicious for gastric varices. 2. Prominent dilatation of the portal splenic confluence, especially on the portal vein area of unknown etiology at this time. 3. Normal common bile duct with the common bile duct dilatation. No stone. 4. No evidence of ampullary mass. 5. Mildly dilated pancreatic duct in the head and genu of the pancreas, with the maximum diameter of 4.5 mm. RECOMMENDATIONS: At this time, there is no obvious mass in the ampulla. I think the patient might benefit from CT angio for further evaluation of the dilation of the portal confluence. If the patient shows abnormal liver function test or worsening of the pancreatic duct, repeat EUS might be indicated. I want to thank Dr. Lancaster for this kind referral. Walter Monreal M.D. DR: JOÃO JOB#: [id number] CC: Carla Lancaster M.D.
--- NOTE | 2017-02-06 22:36 | General Progress Note ---
Assessment/Plan Assessment/Plan abdominal pain ho hep c treated copd htn for egd eus tomorrow MRI noted inhalers bp controlled dvt and ulcer prophylaxis Subjective Allergies: Coded Allergies: No Known Allergies (Unverified , 08/06/15) Subjective this note reflects my visit with patient 02/05 doing ok is to have EGD/EUS tomorrow some nausea abdominal pain better Objective Last 24 Hour Vital Signs Date Time Temp Pulse Resp B/P Pulse Ox O2 Delivery O2 Flow Rate FiO2 02/06/17 19:41 64 18 Room Air 02/06/17 16:00 97.7 60 20 132/64 96 Room Air 02/06/17 12:19 97.6 59 15 108/66 98 Room Air 02/06/17 12:10 57 16 107/70 97 Room Air 02/06/17 12:08 75 14 99 02/06/17 12:07 89 14 99 02/06/17 12:05 56 12 103/65 100 Nasal Cannula 3.0 02/06/17 12:00 97.6 60 13 103/65 100 Nasal Cannula 3.0 02/06/17 11:57 97.3 65 18 119/72 100 Nasal Cannula 3.0 02/06/17 09:13 59 133/69 02/06/17 08:05 55 Room Air 02/06/17 08:00 97.7 59 20 133/69 97 Room Air 02/06/17 04:00 97.9 66 19 120/66 98 Room Air 02/06/17 00:00 97.6 64 18 124/76 99 Room Air Intake and Output 02/05/17 02/06/17 19:00 07:00 Intake Total 720 ml 420 ml Balance 720 ml 420 ml Intake Oral 720 ml 360 ml IV Total 60 ml # Voids 3 5 # Bowel Movements 1 3 Laboratory Tests 02/06/17 07:45: Stool Occult Blood Negative 02/06/17 09:30: Sodium Level 139, Potassium Level 4.3, Chloride Level 97L, Carbon Dioxide Level 32H, Anion Gap 10, Blood Urea Nitrogen 15, Creatinine 1.1, Estimat Glomerular Filtration Rate > 60, Glucose Level 89, Calcium Level 8.9 Height (Feet): 6 Weight (Pounds): 152 General Appearance: WD/WN, no apparent distress Neck: supple Cardiovascular: normal rate Respiratory/Chest: lungs clear Abdomen: non tender Edema: no edema noted Arm (L), no edema noted Arm (R), no edema noted Leg (L), no edema noted Leg (R), no edema noted Pedal (L), no edema noted Pedal (R), no edema noted Generalized KINGSTON MORFIN Feb 06, 2017 22:36
--- NOTE | 2017-02-06 22:38 | General Progress Note ---
Assessment/Plan Assessment/Plan abdominal pain ho hep c treated copd htn sp egd eus will dw Dr Perez will give chlorasecptic diet ordered inhalers bp controlled dvt and ulcer prophylaxis dc plans for tomorrow Subjective Allergies: Coded Allergies: No Known Allergies (Unverified , 08/06/15) Subjective just came sandy freom EGD EUS doing no chest painor sob co throat pain Objective Last 24 Hour Vital Signs Date Time Temp Pulse Resp B/P Pulse Ox O2 Delivery O2 Flow Rate FiO2 02/06/17 19:41 64 18 Room Air 02/06/17 16:00 97.7 60 20 132/64 96 Room Air 02/06/17 12:19 97.6 59 15 108/66 98 Room Air 02/06/17 12:10 57 16 107/70 97 Room Air 02/06/17 12:08 75 14 99 02/06/17 12:07 89 14 99 02/06/17 12:05 56 12 103/65 100 Nasal Cannula 3.0 02/06/17 12:00 97.6 60 13 103/65 100 Nasal Cannula 3.0 02/06/17 11:57 97.3 65 18 119/72 100 Nasal Cannula 3.0 02/06/17 09:13 59 133/69 02/06/17 08:05 55 Room Air 02/06/17 08:00 97.7 59 20 133/69 97 Room Air 02/06/17 04:00 97.9 66 19 120/66 98 Room Air 02/06/17 00:00 97.6 64 18 124/76 99 Room Air Intake and Output 02/05/17 02/06/17 19:00 07:00 Intake Total 720 ml 420 ml Balance 720 ml 420 ml Intake Oral 720 ml 360 ml IV Total 60 ml # Voids 3 5 # Bowel Movements 1 3 Laboratory Tests 02/06/17 07:45: Stool Occult Blood Negative 02/06/17 09:30: Sodium Level 139, Potassium Level 4.3, Chloride Level 97L, Carbon Dioxide Level 32H, Anion Gap 10, Blood Urea Nitrogen 15, Creatinine 1.1, Estimat Glomerular Filtration Rate > 60, Glucose Level 89, Calcium Level 8.9 Height (Feet): 6 Weight (Pounds): 152 General Appearance: WD/WN, no apparent distress Neck: supple Cardiovascular: normal rate Respiratory/Chest: lungs clear Abdomen: soft MORFIN,KINGSTON Feb 06, 2017 22:38
--- NOTE | 2017-02-06 23:14 | General Progress Note ---
Assessment/Plan Assessment/Plan Assessment - Adrenal nodule - Benign appearance on MRI - (R) hip pain - Self Rx with IM street drugs in buttocks "to control pain" - recent buttock infection --> abx - loose BM - r/o C Diff - possible ampullary lesion Recommendations - f/u tumor markers - outpatient EGD/Colon - consider pain management consult Subjective Allergies: Coded Allergies: No Known Allergies (Unverified , 08/06/15) Subjective Feels OK no new c/o had negative EUS Objective Last 24 Hour Vital Signs Date Time Temp Pulse Resp B/P Pulse Ox O2 Delivery O2 Flow Rate FiO2 02/06/17 20:00 96.6 69 20 148/79 97 Room Air 02/06/17 19:41 64 18 Room Air 02/06/17 16:00 97.7 60 20 132/64 96 Room Air 02/06/17 12:19 97.6 59 15 108/66 98 Room Air 02/06/17 12:10 57 16 107/70 97 Room Air 02/06/17 12:08 75 14 99 02/06/17 12:07 89 14 99 02/06/17 12:05 56 12 103/65 100 Nasal Cannula 3.0 02/06/17 12:00 97.6 60 13 103/65 100 Nasal Cannula 3.0 02/06/17 11:57 97.3 65 18 119/72 100 Nasal Cannula 3.0 02/06/17 09:13 59 133/69 02/06/17 08:05 55 Room Air 02/06/17 08:00 97.7 59 20 133/69 97 Room Air 02/06/17 04:00 97.9 66 19 120/66 98 Room Air 02/06/17 00:00 97.6 64 18 124/76 99 Room Air Intake and Output 02/05/17 02/06/17 19:00 07:00 Intake Total 720 ml 420 ml Balance 720 ml 420 ml Intake Oral 720 ml 360 ml IV Total 60 ml # Voids 3 5 # Bowel Movements 1 3 Laboratory Tests 02/06/17 07:45: Stool Occult Blood Negative 02/06/17 09:30: Sodium Level 139, Potassium Level 4.3, Chloride Level 97L, Carbon Dioxide Level 32H, Anion Gap 10, Blood Urea Nitrogen 15, Creatinine 1.1, Estimat Glomerular Filtration Rate > 60, Glucose Level 89, Calcium Level 8.9 Height (Feet): 6 Weight (Pounds): 152 Lymphatic: firm anterior cervical (L), firm anterior cervical (R), firm axillary (L), firm axillary (R), firm inguinal (L), firm inguinal (R), firm other, firm posterior cervical (L), firm posterior cervical (R), firm submandibular (L), firm submandibular (R), firm supraclavicular (L), firm supraclavicular (R) Objective WDWN NCAT supple CTA RRR Abd soft ND NT no edema DEJUAN FERNANDES Feb 06, 2017 23:14
[2017-02-07] VITALS: BP 128/61
[2017-02-07] MEDS: Chloraseptic Spray 20mL Bottle ORAL PRN ×2 (02:57→09:07)
[2017-02-07 04:00] VITALS: BP 120/61
[2017-02-07 07:25] LABS: ALANINE AMINOTRANSFERASE 8 U/L (3-41); ALBUMIN/GLOBULIN RATIO 1.1 (1.0-2.7); ANION GAP 12 (5-15); ASPARTATE AMINO TRANSFERASE 14 U/L (5-40); CALCIUM 8.6 mg/dL (8.6-10.2); CARBON DIOXIDE 31 mEQ/L (20-30); CHLORIDE 94 mEQ/L (98-107); CREATININE 1.1 mg/dL (0.7-1.2); GLOMERULAR FILTRATION RATE > 60 mL/min (>60); HEMOLYSIS 0; POTASSIUM 4.1 mEQ/L (3.4-4.9); SODIUM 137 mEQ/L (135-145); TOTAL PROTEIN 5.9 g/dL (6.6-8.7)
[2017-02-07 07:27] LABS: BASOPHILS % (AUTO) 1.1 % (0.0-2.0); EOSINOPHILS % (AUTO) 2.8 % (0.0-3.0); LYMPHOCYTES % (AUTO) 17.8 % (20.0-45.0); MEAN CORPUSCULAR HEMOGLOBIN 26.3 PG (27.0-31.0); MEAN CORPUSCULAR VOLUME 88 FL (80-99); MEAN PLATELET VOLUME 5.6 FL (6.5-10.1); MONOCYTES % (AUTO) 12.9 % (1.0-10.0); NEUTROPHILS % (AUTO) 65.4 % (45.0-75.0); PLATELET COUNT 291 K/UL (150-450); RED BLOOD COUNT 3.08 M/UL (4.70-6.10); WHITE BLOOD COUNT 7.7 K/UL (4.8-10.8)
[2017-02-07 08:00] VITALS: BP 144/73
[2017-02-07] MEDS: Aspirin Baby 81mg ORAL SCH (09:06)
[2017-02-07 09:07] VITALS: BP 144/73
[2017-02-07] MEDS: Heparin 5000 units/ml inj SUBQ SCH (09:11)
[2017-02-07] MEDS ORDERED: Tubing IV Secondary IV ONE (10:24)
--- NOTE | 2017-02-07 15:13 | General Progress Note ---
Assessment/Plan Assessment/Plan Assessment - Adrenal nodule - Benign appearance on MRI - (R) hip pain - Self Rx with IM street drugs in buttocks "to control pain" - recent buttock infection --> abx - loose BM - r/o C Diff - possible ampullary lesion - negative EUS Recommendations - d/c planning - outpatient EGD/Colon - consider pain management consult Subjective Allergies: Coded Allergies: No Known Allergies (Unverified , 08/06/15) Subjective No new c/o d/w pt re ERCP results wants to go home understands need for outpt EGD/Colon Objective Last 24 Hour Vital Signs Date Time Temp Pulse Resp B/P Pulse Ox O2 Delivery O2 Flow Rate FiO2 02/07/17 09:07 63 144/73 02/07/17 08:00 98.4 63 20 144/73 98 Room Air 02/07/17 07:45 65 18 Room Air 02/07/17 04:00 98.1 59 18 120/61 96 Room Air 02/07/17 00:00 97.6 68 18 128/61 96 Room Air 02/06/17 20:00 96.6 69 20 148/79 97 Room Air 02/06/17 19:41 64 18 Room Air 02/06/17 16:00 97.7 60 20 132/64 96 Room Air Intake and Output 02/06/17 02/07/17 19:00 07:00 Intake Total 250 ml 1060 ml Output Total 0 ml Balance 250 ml 1060 ml Intake Oral 1000 ml IV Total 250 ml 60 ml Output Estimated Blood Loss 0 ml # Voids 4 # Bowel Movements 2 Laboratory Tests 02/07/17 05:30: White Blood Count 7.7, Red Blood Count 3.08L, Hemoglobin 8.1L, Hematocrit 27.0L , Mean Corpuscular Volume 88, Mean Corpuscular Hemoglobin 26.3L, Mean Corpuscular Hemoglobin Concent 30.0L, Red Cell Distribution Width 15.0H, Platelet Count 291, Mean Platelet Volume 5.6L, Neutrophils (%) (Auto) 65.4, Lymphocytes (%) (Auto) 17.8L, Monocytes (%) (Auto) 12.9H, Eosinophils (%) (Auto ) 2.8, Basophils (%) (Auto) 1.1, Sodium Level 137, Potassium Level 4.1, Chloride Level 94L, Carbon Dioxide Level 31H, Anion Gap 12, Blood Urea Nitrogen 19, Creatinine 1.1, Estimat Glomerular Filtration Rate > 60, Glucose Level 82, Calcium Level 8.6, Total Bilirubin < 0.2, Aspartate Amino Transf (AST/SGOT) 14, Alanine Aminotransferase (ALT/SGPT) 8, Alkaline Phosphatase 61, Total Protein 5.9L, Albumin 3.1L, Globulin 2.8, Albumin/Globulin Ratio 1.1 Height (Feet): 6 Weight (Pounds): 152 Objective WDWN NCAT supple CTA RRR Abd soft ND NT no edema DEJUAN FERNANDES Feb 07, 2017 15:13
[2017-02-10] MEDS ORDERED: METRONIDAZOLE500 MG ORAL (15:05)
--- NOTE | 2017-02-10 15:19 | Discharge Summary ---
Discharge Summary Hospital Course Date of Admission Feb 03, 2017 at 19:09 Date of Discharge Feb 07, 2017 at 10:25 Admitting Diagnosis ABDOMINAL PAIN HPI Avis Granados is a 71 year old male who was admitted on Feb 03, 2017 at 19: 09 for Abdominal Pain Hospital Course dc summary #[id number] Discharge Medications New Medications: Metronidazole* (Flagyl*) 500 Mg Tablet 500 MG ORAL EVERY 8 HOURS, #30 TAB Continued Medications: Amlodipine Besylate* (Amlodipine Besylate*) 5 Mg Tablet 5 MG ORAL DAILY, TAB Aspirin* (Aspir 81*) 81 Mg Tablet.dr 81 MG ORAL DAILY, TAB Ferrous Sulfate (Iron) 325 Mg Tablet 325 MG PO, TAB Methadone Hcl* (Methadone*) 5 Mg Tablet 60 MG PO DAILY, #10 TAB 0 Refills Terazosin Hcl (Terazosin Hcl) 10 Mg Capsule 10 MG ORAL HS, CAP Discharge Condition Upon Discharge: stable Discharge Disposition Patient was discharged to Home (01) Discharge Diagnoses: Discharge Instructions Discharge Instructions Special Instructions I have been assigned to complete a D/C Summary on this account. I was not involved in the patient management Rubina Rhoades NP ([place]) Feb 10, 2017 15:19
--- NOTE | 2017-02-11 05:49 | Discharge Summary 2 SIG ---
DATE OF ADMISSION: 02/03/2017 DATE OF DISCHARGE: 02/07/2017 REASON FOR ADMISSION: 71 years old male with history of hypertension presented to emergency room complaining of abdominal pain with nausea, vomiting, progressively worsening over the course of one week. The patient reported that his primary doctor recommended him to go to emergency room for evaluation. The patient has a history of diverticulosis. However, he denied melena, hematochezia, or hematemesis. The patient also was told that he was anemic and had some abnormalities with his pancreas. He reported distended abdomen after total of three loose bowel movements earlier prior to presentation to ED. The patient denied night sweats, fever, chills, significant change in weight, or any weakness. The patient reported difficulty keeping down food and fluids. The patient also reports intermittent heartburn and stated that he has a history of acid reflux. The patient reported history of COPD and smoking. Denied chest pain, palpitation, loss of consciousness, altered mental status, dizziness, change of vision, sensation, paresthesia, or sudden severe headache. Workup in the emergency room revealed stable vital signs, normotensive. Pulse oximetry was stable on the room air. EKG revealed normal sinus rate. No acute ST changes. Laboratory workup revealed leukocytosis, WBC -18.6, anemia, hemoglobin -8.4, and mild hypochloremia. Lipase was within normal limits. Urinalysis showed few bacteria and yeast. Troponin was negative. CK-MB and total CK unremarkable. Ultrasound of the abdomen revealed dilated common bile duct, but no stone; no intrahepatic dilatation, no gallbladder stones, no free fluid. Negative Zambrano sign. In the emergency room, the patient started on IV fluids, bolus of 500 mL IV fluids given. Antiemetic and anti-analgesic provided. The patient started on empiric antibiotics and transferred to the floor for further management. ADMITTING DIAGNOSES: 1. Abdominal pain. 2. Anemia. 3. Leukocytosis. HOSPITAL COURSE: The patient admitted to the floor. GI consult was requested. Anemia workup revealed stable B12 and folate. Iron panel revealed low iron and ferritin of 92 . Venous duplex of bilateral lower extremities was negative for acute DVT. The patient undergone pelvis MRI. MRI of the pelvis revealed increased T2 signal within the subcutaneous fat of the bilateral buttocks, extending into the gluteal musculature, with similar finding on the right lateral hip. Edematous area is also demonstrated on prior CT scan. Findings, nonspecific would represent a dependent edema versus cellulitis versus myositis. There was a free pelvic fluid noticed of uncertain significance, but not physiological in a male patient. Abdominal MRI revealed left adrenal nodule described on recent CT and sufficiently well demonstrated on MRI. Nodule remains nonspecific, but statistically most likely benign adenoma. Previously demonstrated low attenuation splenic lesion seen on a CT with T2 signal, on the MRI consistent to be benign cyst. Extrahepatic and central intrahepatic biliary ductal dilatation with dilatation extending to level of ampulla, etiology uncertain, and no definite obstruction lesion was identified. Recommended nuclear medicine hepatobiliary scan. Negative for gallstones. Left lobe liver cyst incidentally noted. The patient did self treatment with IM street drugs in the buttock to control pain and had a recent buttock infection for which he was treated with antibiotics. Since the patient reported loose bowel movements, stool was sent C. difficile. The question was also about possible ampullary lesion due to the findings of the CT and MRI. GI recommended endoscopic ultrasound, outpatient EGD, and colonoscopy, to check pancreatic cancer tumor marker as well as to continue pain management. PSA was negative. CEA was slightly elevated at 3.7. The patient has undergone endoscopic ultrasound due to the dilated common bile duct and pancreatic duct to rule out ampullary mass. This findings did not support and did not show any evidence of ampullary mass. At this time, no obvious mass was demonstrated to be in ampulla per GI specialist, who performed an endoscopic ultrasound on this patient. He recommended that the patient might benefit from CT angio for further evaluation . If the patient will show abnormal liver function tests or worsening or the pancreatic ducts, repeated endoscopic ultrasound would be indicative. As mentioned above, the patient has evidence of iron deficiency anemia. The patient had three days of Venofer as per GI. Blood pressure was managed. calcium channel celestino and was stable. DVT prophylaxis provided. Aspirin was continued.. GI prophylaxis provided. Pain management provided. The patient was on empiric antibiotics. Blood cultures were negative. Stool for C. difficile came back positive, likely due to recent antibiotic use for buttock infection. Prescription were called by doctor to the patient's pharmacy. DISCHARGE DIAGNOSES: 1. Clostridium difficile colitis. 2. Iron-deficiency anemia. 3. Chronic obstructive pulmonary disease. 4. Hypertension. 5. History of hepatitis C, treated as an outpatient. 6. History of recent buttock infection. 7. Right hip pain. 8. Adrenal nodule, likely benign. DISCHARGE MEDICATIONS: See medication reconciliation list. DISCHARGE INSTRUCTIONS: The patient to follow up with the primary medical doctor. Recommended outpatient EGD and colonoscopy. Farhat Welsh M.D. I have been assigned to dictate discharge summary on this account and I was not involved in the patient's management. Rubina Jimenezphil N.PNegar DR: YOLI JOB#: [id number] CC: FALGUNI
== END 2017-02-07 10:25 | disposition home or self-care (01) | DRG 372 ==
LOC: EMR 17:30 → 4W 19:09 → EDBEDREQ 19:21
PROC: 0FJD8ZZ Inspection of Pancreatic Duct, Via Natural or Artificial Opening Endoscopic (ICD-10-PCS; principal; 2017-02-06 11:26)
PROC: 0FJB8ZZ Inspection of Hepatobiliary Duct, Via Natural or Artificial Opening Endoscopic (ICD-10-PCS; principal; 2017-02-06 11:26)
DX: A04.7 Enterocolitis due to Clostridium difficile (principal); F11.20 Opioid dependence, uncomplicated; J44.9 Chronic obstructive pulmonary disease, unspecified; D50.9 Iron deficiency anemia, unspecified; R93.8 Abnormal findings on diagnostic imaging of other specified body structures; M25.551 Pain in right hip; I10 Essential (primary) hypertension; I86.4 Gastric varices
CPT/HCPCS: 36415; 71010; 72195; 74181; 76700; 80048; 80053; 80061; 81003; 82270; 82378; 82550; 82553; 82607; 82728; 82746; 83540; 83550; 83690; 84153; 84443; 84484; 85025; 85610; 85730; 86850; 86900; 86901; 87040; 87045; 87086; 87493; 93005; 93970; 94003; 94150; 94664

== ENCOUNTER → 2017-05-01 | Outpatient (CLI) | payer MEDICARE, OTHER ==
[~2017-05-01] MED LIST changes: +ASPIR 8181 MG ORAL; +IRON325 M1 PO; +METHADONE HCL10 MG PO; +METHADONE HCL5 MG PO; +METRONIDAZOLE500 MG ORAL; +TERAZOSIN HCL10 MG ORAL
--- NOTE | 2017-05-01 13:55 | Diagnostic Imaging Report ---
Indication: Cough Technique: Two views of the chest Comparison: 02/03/2017 Findings: 8 mm opacity projects between the posterior left fifth and sixth ribs. This is probably evident on multiple earlier studies, but appears more conspicuous currently. Increased conspicuity may due to the fact that is not superimposed over rib on the current exam The lungs and pleural spaces are otherwise clear. Heart size is normal. There are degenerative changes of the thoracic spine. The aorta is tortuous Impression: 8mm left upper lung nodule. Probably evident on earlier studies, but this cannot be stated conclusively. Recommend chest CT for further evaluation. This was discussed by phone with Dr. Welsh at the time of interpretation No acute process otherwise
== END | disposition home or self-care (01) ==
LOC: RAD 13:01
DX: Z01.818 Encounter for other preprocedural examination (principal); I10 Essential (primary) hypertension; R05 Cough; R91.1 Solitary pulmonary nodule
CPT/HCPCS: 71020

== ENCOUNTER 2018-05-25 18:44 | Outpatient (CLI) | payer MEDICARE, OTHER ==
--- NOTE | 2018-05-26 11:48 | Diagnostic Imaging Report ---
Indication: Dyspnea Comparison: 05/01/2017 2 views of the chest obtained. There is a right chest port present in good position with tip projected over the SVC. Reticular markings are prominent within the lungs bilaterally finding is nonspecific. Heart size is normal. Bones are osteopenic. No pleural effusion seen. IMPRESSION: Prominence of the pulmonary interstitium nonspecific. Some of this is related to technique. Chest port in good position
== END 2018-05-25 20:44 | disposition home or self-care (01) ==
LOC: RAD 18:44
DX: R05 Cough (principal); M85.80 Other specified disorders of bone density and structure, unspecified site; R06.00 Dyspnea, unspecified
CPT/HCPCS: 71046

== ENCOUNTER 2019-06-02 01:51 | Inpatient (IN) | payer MEDICARE, OTHER ==
[2019-06-02] VITALS (7 sets, daily range): BP systolic 120–148; BP diastolic 64–92
[~2019-06-02] VITALS: Ht 172.7 cm; Wt 80.7 kg
--- NOTE | 2019-06-02 01:54 | Emergency Room Report ---
History of Present Illness Present Illness HPI Patient is a 73-year-old male brought in by EMS after increased shortness of breath. Patient a prior history of COPD as well as lung cancer. He is currently being treated by Dr. Farhat Welsh. Patient reports having gradual worsening of difficulty with breathing. He was given breathing treatments and started on CPAP by EMS. Patient history is limited by acuity. Patient denies any fever or productive cough. He had not been having any prior history of DVT but had noticed some bilateral leg swelling. Allergies: Coded Allergies: No Known Allergies (Unverified , 08/06/15) Patient History Reviewed Nursing Documentation: PMH: Agreed; PSxH: Agreed Review of Systems All Other Systems: negative except mentioned in HPI Physical Exam General Appearance: alert, GCS 15, moderate distress, Chronically Ill Respiratory: wheezing Cardiovascular #1: normal peripheral pulses, regular rate, rhythm, edema Musculoskeletal: normal inspection Neurologic: normal inspection, alert, oriented x3, responsive Medical Decision Making Diagnostic Impression: Primary Impression: COPD (chronic obstructive pulmonary disease) Additional Impression: Lung cancer ER Course Present for shortness of breath. Differential diagnosis include was not limited to COPD exacerbation, pulmonary embolism, pneumonia, congestive heart failure among others. Because of complexity of patient's case laboratory testing and imaging studies were ordered. Patient was noted to have prior history of COPD as well as lung cancer. He is currently getting medications via port. Patient was started on supplemental oxygen and BiPAP due to increased difficulty with respirations. He was noted to have some improvement after IV steroids and breathing treatments. Dr. Farhat Welsh I was contacted for inpatient management due to patient's primary care physician. Labs Test 06/02/19 01:54 06/02/19 02:00 Arterial Blood pH 7.295 (7.350-7.450) Arterial Blood Partial Pressure CO2 68.8 mmHg (35.0-45.0) Arterial Blood Partial Pressure O2 107.4 mmHg (75.0-100.0) Arterial Blood HCO3 32.7 mmol/L (22.0-26.0) Arterial Blood Oxygen Saturation 97.0 % (95-100) Arterial Blood Base Excess 4.8 (-2-2) Rupert Test Positive White Blood Count 9.8 K/UL (4.8-10.8) Red Blood Count 3.87 M/UL (4.70-6.10) Hemoglobin 9.4 G/DL (14.2-18.0) Hematocrit 32.2 % (42.0-52.0) Mean Corpuscular Volume 83 FL (80-99) Mean Corpuscular Hemoglobin 24.3 PG (27.0-31.0) Mean Corpuscular Hemoglobin Concent 29.2 G/DL (32.0-36.0) Red Cell Distribution Width 22.2 % (11.6-14.8) Platelet Count 212 K/UL (150-450) Mean Platelet Volume 5.9 FL (6.5-10.1) Neutrophils (%) (Auto) 74.8 % (45.0-75.0) Lymphocytes (%) (Auto) 7.2 % (20.0-45.0) Monocytes (%) (Auto) 9.4 % (1.0-10.0) Eosinophils (%) (Auto) 7.5 % (0.0-3.0) Basophils (%) (Auto) 1.2 % (0.0-2.0) Sodium Level 140 MMOL/L (136-145) Potassium Level 3.9 MMOL/L (3.5-5.1) Chloride Level 102 MMOL/L (98-107) Carbon Dioxide Level 34 MMOL/L (21-32) Anion Gap 5 mmol/L (5-15) Blood Urea Nitrogen 20 mg/dL (7-18) Creatinine 1.0 MG/DL (0.55-1.30) Estimat Glomerular Filtration Rate mL/min (>60) Glucose Level 173 MG/DL (74-106) Lactic Acid Level 1.10 mmol/L (0.4-2.0) Calcium Level 8.7 MG/DL (8.5-10.1) Phosphorus Level 3.8 MG/DL (2.5-4.9) Magnesium Level 1.8 MG/DL (1.8-2.4) Total Bilirubin 0.2 MG/DL (0.2-1.0) Aspartate Amino Transf (AST/SGOT) 19 U/L (15-37) Alanine Aminotransferase (ALT/SGPT) 11 U/L (12-78) Alkaline Phosphatase 82 U/L (46-116) Total Creatine Kinase 235 U/L (26-308) Creatine Kinase MB 3.9 NG/ML (0.0-3.6) Creatine Kinase MB Relative Index 1.6 Troponin I 0.003 ng/mL (0.000-0.056) Pro-B-Type Natriuretic Peptide 34 pg/mL (0-125) Total Protein 6.8 G/DL (6.4-8.2) Albumin 3.4 G/DL (3.4-5.0) Globulin 3.4 g/dL Albumin/Globulin Ratio 1.0 (1.0-2.7) Status: unchanged Disposition: ADMITTED INPATIENT Condition: Serious Gabino Barrios MD Jun 02, 2019 01:54
[2019-06-02] MEDS ORDERED: Solu-MEDROL 125mg Inj IVP ONE (02:00)
[2019-06-02] MEDS ORDERED: Albuterol/Ipratropium 3ml neb HHN ONE ×2 (02:00→02:45)
[2019-06-02] MEDS ORDERED: LISINOPRIL (02:04)
[2019-06-02] MEDS ORDERED: asa (02:04)
[2019-06-02] MEDS ORDERED: ASPIRIN81 MG ORAL (02:04)
[2019-06-02] MEDS ORDERED: ASPIR 8181 MG ORAL (02:04)
[2019-06-02] MEDS ORDERED: CHLORTHALIDONE25 MG ORAL (02:04)
[2019-06-02] MEDS ORDERED: CATAPRES0.1 MG ORAL (02:04)
[2019-06-02 02:14] LABS: BASOPHILS % (AUTO) 1.2 % (0.0-2.0); EOSINOPHILS % (AUTO) 7.5 % (0.0-3.0); HEMATOCRIT 32.2 % (42.0-52.0); HEMOGLOBIN 9.4 G/DL (14.2-18.0); LYMPHOCYTES % (AUTO) 7.2 % (20.0-45.0); MEAN CORPUSCULAR VOLUME 83 FL (80-99); MONOCYTES % (AUTO) 9.4 % (1.0-10.0); NEUTROPHILS % (AUTO) 74.8 % (45.0-75.0); PLATELET COUNT 212 K/UL (150-450); RED BLOOD COUNT 3.87 M/UL (4.70-6.10); RED CELL DISTRIBUTION WIDTH 22.2 % (11.6-14.8); WHITE BLOOD COUNT 9.8 K/UL (4.8-10.8)
--- NOTE | 2019-06-02 02:20 | NUR ---
ED Nurse Note: Patient was BIBA from home due to SOB, astma exaserbation. Per optical glass sawyer called 911, since patient was in respiratory disstress. Patient presented pale, had labored breathing. Patient's O2 sat upon arrival was 98 % on 15 L. AAO x4, VSS at this time, skin is dry, warm to touch. ER MD at bed side.
[2019-06-02 02:44] LABS: ANION GAP 5 mmol/L (5-15); BLOOD UREA NITROGEN 20 mg/dL (7-18); CALCIUM 8.7 MG/DL (8.5-10.1); CARBON DIOXIDE 34 MMOL/L (21-32); CHLORIDE 102 MMOL/L (98-107); POTASSIUM 3.9 MMOL/L (3.5-5.1); SODIUM 140 MMOL/L (136-145)
[2019-06-02 02:58] LABS: ALANINE AMINOTRANSFERASE 11 U/L (12-78); ALBUMIN 3.4 G/DL (3.4-5.0); ALKALINE PHOSPHATASE 82 U/L (46-116); ASPARTATE AMINO TRANSFERASE 19 U/L (15-37); BILIRUBIN,TOTAL 0.2 MG/DL (0.2-1.0); CKMB 3.9 NG/ML (0.0-3.6); CREATINE KINASE 235 U/L (26-308); PHOSPHORUS 3.8 MG/DL (2.5-4.9)
--- NOTE | 2019-06-02 05:05 | NUR ---
ED Nurse Note: Patient is sleeping, VSS at this time, no acute disstress noticed. Patient stillon BIPAP with same settings.
--- NOTE | 2019-06-02 06:45 | NUR ---
NURSE NOTES: Brenda THORNTON ER called and gave report on Pt. await to receive pt.
--- NOTE | 2019-06-02 07:00 | NUR ---
ED Nurse Note: Patient was admited to SDU due to respiratory distress. Patient was transfered via gurney by ACLS protocol with O2 on 15 L via nonrebreathing mask. Patient AAO x4, VSS at this time skin is dry warm to touch, all belongings were transfered with patient.
--- NOTE | 2019-06-02 07:10 | NUR ---
NURSE NOTES: Received bedside report from Fernando RN and Isabelle DETASSELER nurse. Pt. on Bipap with setting 15/5 , FiO2 30%. Denies pain at present. Pt. have subclavian port-a-cath at right upper chest. Pt. a/o x 4. Pleasant and cooperative. Called Dr. Welsh for admit orders. Awaiting for response.
--- NOTE | 2019-06-02 07:10 | NUR ---
NURSE NOTES: [facility] ER brought up Pt with all belongings. pt appears to be stable on ER BiPAP order (reported settings of 15/5 30FiO2) satting at 100% at the moment. pt verbally agreed to have money placed in Hospital safe. pt has a R upper chest Port Cath. pt is placed on telemetry monitor showing NSR, no other cardiac compromise noted. all safety precautions active, bed locked and low, bed armed. will endorse to morning RN Floraadrian to proceed with plan of care.
--- NOTE | 2019-06-02 07:35 | NUR ---
NURSE NOTES: Received a call back from Dr. Welsh for admit orders.
--- NOTE | 2019-06-02 08:50 | NUR ---
NURSE NOTES:WOUND CARE NOTES:Pt presented on admission with moisture related denuded skin R and L cleft of buttocks. No erythema noted but pt verbalized area tender when minimally palpated .Sacrum without erythema or evidence of skin breakdown. Thick brown callused skin noted to L heel. L heel non-tender when palpated.R heel is dry,firm and blanchable. Pt educated on wound prevention. Encourage to frequently reposition while in bed. Encouraged to off-lift buttocks when repositioning to frevent friction and shearing to buttocks. Pt also encouraged to notify staff when incontinent to avoid prolonged exposure to incontinence on skin and to prevent further skin breakdown. Tx.Plan: Apply Moisture Barrier Paste to cleft of Buttocks with each incontinence care. Encourage and assist as needed to reposition at least every 2hours or as tolerated. Off-load heels with pillow.
[2019-06-02] MEDS: Heparin 5000 units/ml inj SUBQ SCH ×2 (10:23→20:10)
--- NOTE | 2019-06-02 13:20 | NUR ---
CASE MANAGEMENT: INITIAL REVIEW 73 YO M JONAS FROM HOME CC: DYSPNEA PMHx: COPD. LUNG CA. Si:COPD EXACERBATION. T 97.4 HR 129 RR 20 B/P 127/74 SATS 100% ON BIPAP CO2 34 BUN 20 GLU 173 ALT 11 CK MB 3.9 ABGS PH 7.295 PCO2 68.8 PO2 107.4 HCO3 32.7 BE 4.8 IS:NS BOLUS X1 DUO NEB HHN X2 SOLU MEDROL IV X1 PATIENT ADMITTED TO [facility] 06/02/2019 @ 0241 DCP: PATIENT TO BE DISCHARGED TO HOME ONCE MEDICALLY CLEARED. Addendum: 06/02/19 at 1328 by Malaika Chambers CM INTERQUAL MET
[2019-06-02] MEDS ORDERED: Albuterol/Ipratropium 3ml neb HHN PRN (13:30)
--- NOTE | 2019-06-02 13:37 | Consultation ---
Consult Note Assessment/Plan DICT # [id number] Clemente Christiansen MD Jun 02, 2019 13:37
--- NOTE | 2019-06-02 14:02 | Diagnostic Imaging Report ---
APPROVED REPORT CPT Code: 33798 Present Symptoms Lower Extremity Edema: Bilateral Shortness of breath BILATERAL: Imaging reveals a patent deep venous system bilaterally. There is no evidence of thrombus within the femoral, popliteal or tibial segments. The greater saphenous veins are also within normal limits. Doppler indicates normal spontaneous flow within these segments.
--- NOTE | 2019-06-02 14:34 | Diagnostic Imaging Report ---
Indication: Shortness of breath Technique: One view of the chest Comparison: 05/25/2018 Findings: Again demonstrated is a right chest port catheter, tip which projects at the level of the superior vena cava. The lungs and pleural spaces are clear. The heart size is normal. Findings are unchanged Impression: No acute process
[2019-06-02] MEDS: metroNIDAZOLE 500mg tab ORAL SCH ×2 (14:59→21:05)
--- NOTE | 2019-06-02 17:45 | Consultation ---
DATE OF CONSULTATION: 06/02/2019 PULMONARY CONSULTATION CONSULTING PHYSICIAN: Clemente Christiansen M.D. REFERRING PHYSICIAN: Farhat Welsh M.D. REASON FOR CONSULTATION: Shortness of breath. HISTORY OF PRESENT ILLNESS: The patient is a very pleasant 73-year-old male, well known to me with a history of stage IV non-small cell lung carcinoma (adenocarcinoma) on immunotherapy with Keytruda, COPD, current daily smoker, multiple lower lobe predominant nodules, IV drug use, hepatitis, multiple exacerbations at [facility] for COPD exacerbations, well known to me last discharge 05/06/2019 who actually had an appointment with me today, but presented with several days of difficulty breathing, shortness of breath, increase in his baseline cough. No wheezing. No fevers or chills. No nausea, or vomiting. Some lower extremity edema. Upon presentation, he was afebrile. Vitals were stable. ABG was 7.29/68/107/32/97. He has a home trilogy ventilator, notes he feels markedly improved off of BiPAP now. PAST MEDICAL HISTORY: 1. COPD. 2. Lung cancer. 3. Lung nodules. 4. History of Pseudomonas pneumonia. 5. Previous Quant Gold positive. 6. Tobacco use. 7. IV drug use. 8. Hepatitis B. ALLERGIES: No known drug allergies. MEDICATIONS: Prior to admission medications reviewed. Current medications reviewed. SOCIAL HISTORY: He is a current daily smoker, occasional intravenous drug users. No alcohol. FAMILY HISTORY: Noncontributory. REVIEW OF SYSTEMS: Negative other than history of present illness. PHYSICAL EXAMINATION: VITAL SIGNS: Temperature 97.6, pulse 88, blood pressure 140/92, respiratory rate 22, saturating 100% on face mask. GENERAL: He is a well-developed and well-nourished male in no distress. Awake, alert, and oriented x3. HEENT: Normocephalic and atraumatic. Oropharynx is clear with moist mucous membranes. NECK: Supple without lymphadenopathy or JVD. CHEST: Clear but distant with faint rhonchi. HEART: Regular rate and rhythm. ABDOMEN: Soft, nontender, and nondistended. EXTREMITIES: No cyanosis, clubbing, or edema. ANCILLARY DATA: Labs, sodium 140, potassium 3.9, chloride 102, bicarb 34, BUN 20, creatinine 1, glucose 173, lactic acid 1.1, calcium 8.7, phosphorus 3.8, magnesium 1.8. Total bilirubin 0.2, AST 19, ALT 11, alkaline phosphatase 82. CK 235, CK-MB 3.9, troponin 0.003. ProBNP 34. Total protein 6.8. Albumin 3.4. ABG 7.29/68/107/32/97. White count 9.8, hemoglobin 9.4, and platelet count 212. Chest x-ray from the emergency department shows some pulmonary interstitial prominence, no other findings. ASSESSMENT: The patient is a 73-year-old male with a history of stage IV non-small cell lung cancer (adenocarcinoma on immunotherapy with Keytruda) obstructive pulmonary disease, current daily smoker, multiple lower lobe predominant nodules, intravenous drug use, hepatitis, presenting with an acute exacerbation of his COPD and respiratory failure. PROBLEM LIST: 1. Acute exacerbation of COPD. 2. Acute on chronic hypercapnic and hypoxemic respiratory failure. 3. Non-small cell lung carcinoma (adenocarcinoma) on immunotherapy. 4. Multiple lower lobe predominant, centrilobular nodular opacities suggestive of infectious or inflammatory bronchiolitis such as RB-ILD, progress on follow-up imaging. 5. Questionable left lower lobe opacity seen on 04/14/2019 CT chest, which was new. 6. Recent pseudomonal pneumonia. 7. History of positive Quant gold but negative AFB. 8. Extensive tobacco use. 9. Intravenous drug and cocaine use. 10. Hepatitis B. TREATMENT PLAN: 1. Optimize pulmonary hygiene/mobilize as tolerated. 2. BiPAP 12/5 p.r.n. and at bedtime. 3. Titrate FiO2 to keep saturations greater than 90%. 4. Prednisone 60 mg today is day #1 of 5. 5. Qhyzy-cek-cipeg and p.r.n. DuoNebs. 6. Continue Advair, Spiriva . 7. Continue Daliresp. 8. Continue to discuss abstinence from tobacco use. 9. DVT prophylaxis with heparin subcutaneous. 10. The patient needs post-discharge follow-up CT scan as previously planned. 11. Follow up with Dr. Montero as directed. Clemente Christiansen M.D. DR: Deloris JOB#: [id number] CC:
[2019-06-02] MEDS: Wixela 250/50 Inhaler - 60 dose INH SCH (18:55)
[2019-06-02] MEDS: Albuterol/Ipratropium 3ml neb HHN SCH (18:56)
--- NOTE | 2019-06-02 19:13 | NUR ---
HAND-OFF: Report given to Keenan THORNTON. Pt. remain stable.
--- NOTE | 2019-06-02 19:15 | NUR ---
NURSE NOTES: received patient from Suri THORNTON. Patient is alert and oriented to place, time, purpose, and date. Patient is on NC and saturating at 93%. BIPAP at bedside if needed PRN. RU Chest subclavian access port-ok to use. Infusing 1/2NS at 75ml/hr. Patient uses urinal to void. skin is intact. No acute respiratory distress at this time. Bed in low position and call light within reach, Educated patient to call before getting up and out of bed, patient communicated back my teaching. Will continue to monitor.
--- NOTE | 2019-06-02 20:00 | NUR ---
NURSE NOTES: Patient remains calm and collected Urinal at bedside Patient eating snacks at bedside camacho not seem to be in any form of respiratory distress Maintenance fluids ongoing isrrael cath remains working fine bed in lowest position bed alarm ornamental iron worker light within reach reiterated the importance of calling staff via call light before getting out of bed.
--- NOTE | 2019-06-02 21:00 | NUR ---
NURSE NOTES: Patient is refusing SCD's. Explained the benefits of the SCD's usage. Patient continues to refuse them. Will respects patients rights to refuse.
[2019-06-03] VITALS: BP 135/79
--- NOTE | 2019-06-03 | History and Physical Report ---
DATE OF ADMISSION: 06/02/2019 HISTORY OF PRESENT ILLNESS: The patient is an unfortunate 73-year-old gentleman with history of non-small cell CA of the lung, on immunotherapy, history of chronic hypercapnic respiratory failure, history of chronic obstructive pulmonary disease, and history of known intravenous drug use with heroin, he is on methadone, he also uses cocaine, history of hepatitis B, who presented to the ER with increased shortness of breath occurring over the past few days associated with some cough. The patient was evaluated in the ER and noted to be hypercarbic and placed on BiPAP. The patient has had multiple admissions for similar occurrences occurring after using drugs usually. The patient is alert, on BiPAP. Denies any fevers or chills. No chest pain. No abdominal pain. No urinary symptoms. PAST MEDICAL HISTORY: Includes a history of chronic obstructive pulmonary disease, history of emphysema, history of pulmonary nodules, history of stage IV non-small cell CA of the lung, on immunotherapy, history of adenocarcinoma, history of previous bronchoscopies and biopsies, history of supraclavicular lymph node biopsy, history of bladder biopsy, history of transurethral resection of the prostate, history of hyperlipidemia, history of vitamin D deficiency, history of allergic rhinitis, history of previous lower extremity cellulitis, history of chronic hypercapnic respiratory failure requiring intubation in the past, history of chronic pain, history of chronic opiate use, history of diffuse psoriasis, history of heroin and cocaine use, and history respiratory failure. MEDICATIONS: Please see his reconciled med list. ALLERGIES: None known. SOCIAL HISTORY: He is a chronic smoker and continues to smoke. Continues to use heroin and cocaine. Denies any alcohol use. REVIEW OF SYSTEMS: A 12-point review of systems reviewed. Negative except for above. PHYSICAL EXAMINATION: GENERAL: The patient currently is on BiPAP. He is awake and alert. VITAL SIGNS: Stable. HEENT: Head is normocephalic and atraumatic. Pupils reactive to light. Extraocular muscles are intact. LUNGS: Decreased breath sounds. HEART: Regular rate and rhythm. ABDOMEN: Soft. Positive bowel sounds. Nondistended and nontender. EXTREMITIES: No clubbing, cyanosis, or edema. NEUROLOGIC: Moves all his extremities. LABORATORY DATA: Noted. ASSESSMENT AND PLAN: The patient is an unfortunate 73-year-old gentleman with history of chronic obstructive pulmonary disease, history of lung cancer, and history of polysubstance abuse presents with increased shortness of breath, noted to be hypercarbic requiring BiPAP, worsening chronic obstructive pulmonary disease exacerbation. The patient was given respiratory treatments and was given steroids. He is being admitted to a monitored bed. I have asked Dr. Christiansen, his livestock yard attendant to see him. We will continue his medications from home. Placed him on DVT and ulcer prophylaxis. Check lower extremity Dopplers on him as well. Farhat Welsh M.D. DR: SY JOB#: [id number] CC:
--- NOTE | 2019-06-03 | NUR ---
NURSE NOTES: Patient placed on BIPAP 15/5, 30% FiO2 Patient sleeping at this time. Afebrile HR 75 NSR SpO2 95% No SOB or any other distress at this time.
[2019-06-03] MEDS: Albuterol/Ipratropium 3ml neb HHN SCH ×3 (00:14→13:16)
[2019-06-03 04:00] VITALS: BP 136/77
--- NOTE | 2019-06-03 04:00 | NUR ---
NURSE NOTES: Blood drawn via port access and sent to lab Patient remains on the BIPAP NO acute distress at this time Patient making good urine output Refreshments at bedside for oral gratification NSR, BP stable, RR stable, Afebrile, Spo2 99%
[2019-06-03] MEDS: metroNIDAZOLE 500mg tab ORAL SCH ×2 (05:31→14:05)
[2019-06-03 05:42] LABS: BASOPHILS % (AUTO) 0.7 % (0.0-2.0); EOSINOPHILS % (AUTO) 4.8 % (0.0-3.0); HEMATOCRIT 29.1 % (42.0-52.0); HEMOGLOBIN 8.6 G/DL (14.2-18.0); LYMPHOCYTES % (AUTO) 12.1 % (20.0-45.0); MEAN CORPUSCULAR VOLUME 83 FL (80-99); MONOCYTES % (AUTO) 11.2 % (1.0-10.0); NEUTROPHILS % (AUTO) 71.3 % (45.0-75.0); PLATELET COUNT 182 K/UL (150-450); RED CELL DISTRIBUTION WIDTH 21.2 % (11.6-14.8)
--- NOTE | 2019-06-03 06:00 | NUR ---
NURSE NOTES: No acute changes overnight Patient remained stable without distress what so ever Patient sleeping at this time, refusing bed linen change Linen is dry and intact Maintenance fluids ongoing
[2019-06-03 06:04] LABS: ALANINE AMINOTRANSFERASE 11 U/L (12-78); ALKALINE PHOSPHATASE 67 U/L (46-116); ANION GAP 3 mmol/L (5-15); ASPARTATE AMINO TRANSFERASE 14 U/L (15-37); BILIRUBIN,TOTAL 0.1 MG/DL (0.2-1.0); BLOOD UREA NITROGEN 20 mg/dL (7-18); CARBON DIOXIDE 36 MMOL/L (21-32); CHLORIDE 101 MMOL/L (98-107); CREATININE 0.9 MG/DL (0.55-1.30); POTASSIUM 3.9 MMOL/L (3.5-5.1); SODIUM 139 MMOL/L (136-145)
--- NOTE | 2019-06-03 07:23 | NUR ---
NURSE NOTES: Received bedside report from Keenan THORNTON. Pt. in bed, awake, a/o x 4. No sign of distress. On O2 at 2LPM via NC. Denies pain at present. On routine methadone for pain mngt. IV 1/2 NS at 75cc/hr running at right upper chest port-a-cath. Tolerating well. Call light within reach. Will cont. to monitor.
[2019-06-03 08:00] VITALS: BP 151/85
[2019-06-03] MEDS: Wixela 250/50 Inhaler - 60 dose INH SCH (08:45)
[2019-06-03] MEDS: Heparin 5000 units/ml inj SUBQ SCH (09:33)
[2019-06-03 12:00] VITALS: BP 127/93
--- NOTE | 2019-06-03 15:14 | Pulmonology Progress Note ---
Assessment/Plan Problems: (1) COPD (chronic obstructive pulmonary disease) (2) Lung cancer Assessment/Plan ASSESSMENT: The patient is a 73-year-old male with a history of stage IV non- small cell lung cancer (adenocarcinoma on immunotherapy with Keytruda) obstructive pulmonary disease, current daily smoker, multiple lower lobe predominant nodules, intravenous drug use, hepatitis, presenting with an acute exacerbation of his COPD and respiratory failure. PROBLEM LIST: 1. Acute exacerbation of COPD. 2. Acute on chronic hypercapnic and hypoxemic respiratory failure. 3. Non-small cell lung carcinoma (adenocarcinoma) on immunotherapy. 4. Multiple lower lobe predominant, centrilobular nodular opacities suggestive of infectious or inflammatory bronchiolitis such as RB-ILD, progress on follow- up imaging. 5. Questionable left lower lobe opacity seen on 04/14/2019 CT chest, which was new. 6. Recent pseudomonal pneumonia. 7. History of positive Quant gold but negative AFB. 8. Extensive tobacco use. 9. Intravenous drug and cocaine use. 10. Hepatitis B. TREATMENT PLAN: 1. Optimize pulmonary hygiene/mobilize as tolerated. 2. BiPAP 12/5 p.r.n. and at bedtime --> will continue to use his own TRILOGY ventilatory @ home 3. Titrate FiO2 to keep saturations greater than 90%. 4. Prednisone 60 mg today is day #2 of 5 ----> Rx sent to patient's pharmachy 5. Pqjym-iun-kemka and p.r.n. DuoNebs. 6. Continue Advair, Spiriva - resume TRELEGY @ HOME. 7. Continue Daliresp. 8. Continue to discuss abstinence from tobacco use. 9. DVT prophylaxis with heparin subcutaneous. 10. The patient needs post-discharge follow-up CT scan as previously planned. 11. Follow up with Dr. Montero as directed. 12. Stable for discharge from a pulmonary standpoint, can F/U with me in 1 week or earlier PRN Subjective Allergies: Coded Allergies: No Known Allergies (Unverified , 08/06/15) Subjective AFVSS stable O2 needs Cough and SOB @ baseline no FC no CP Objective Last 24 Hour Vital Signs Date Time Temp Pulse Resp B/P (MAP) Pulse Ox O2 Delivery O2 Flow Rate FiO2 06/03/19 13:17 79 16 100 Nasal Cannula 2.0 28 06/03/19 13:00 80 16 97 Nasal Cannula 2.0 28 06/03/19 12:00 98.6 100 23 127/93 (104) 97 06/03/19 12:00 2.0 06/03/19 12:00 Bi-pap 06/03/19 08:45 80 16 97 Nasal Cannula 2.0 06/03/19 08:45 79 16 99 Nasal Cannula 2.0 28 06/03/19 08:00 2.0 06/03/19 08:00 98.5 80 22 151/85 (107) 97 06/03/19 08:00 Bi-pap 06/03/19 07:50 80 06/03/19 06:54 82 18 100 Nasal Cannula 2.0 06/03/19 06:54 98 Nasal Cannula 2.0 06/03/19 06:45 82 18 98 Bi-Pap 30 06/03/19 05:01 9 16 99 Facial 30 06/03/19 04:00 Bi-pap 06/03/19 04:00 30 06/03/19 04:00 97.3 65 20 136/77 (96) 99 06/03/19 03:26 68 06/03/19 02:49 83 19 99 Facial 30 06/03/19 00:23 88 18 98 Facial 30 06/03/19 00:22 90 18 99 Bi-Pap 30 06/03/19 00:15 92 18 96 Nasal Cannula 2.0 28 06/03/19 00:00 30 06/03/19 00:00 81 06/03/19 00:00 Bi-pap 06/03/19 00:00 98.0 81 16 135/79 (97) 95 06/02/19 23:27 85 06/02/19 20:00 1.0 06/02/19 20:00 80 06/02/19 20:00 Nasal Cannula 1.0 06/02/19 20:00 98.5 78 16 136/88 (104) 98 06/02/19 19:17 84 18 100 Nasal Cannula 2.0 06/02/19 19:03 81 18 98 Nasal Cannula 2.0 06/02/19 19:02 98 Nasal Cannula 2.0 28 06/02/19 19:01 83 18 98 Nasal Cannula 2.0 06/02/19 18:59 81 18 98 Nasal Cannula 2.0 06/02/19 16:00 Bi-pap 06/02/19 16:00 98.7 87 21 148/72 (97) 96 06/02/19 16:00 2.0 06/02/19 15:14 92 Intake and Output 06/02/19 06/03/19 19:00 07:00 Intake Total 800 ml 1370 ml Output Total 1300 ml 1800 ml Balance -500 ml -430 ml Intake Oral 800 ml 900 ml IV Total 450 ml Other 20 ml Output Urine Total 1300 ml 1800 ml General Appearance: WD/WN, no acute distress HEENT: normocephalic, atraumatic, anicteric, mucous membranes moist Respiratory/Chest: chest wall non-tender, lungs clear - but distant, normal breath sounds, no respiratory distress, no accessory muscle use Cardiovascular: normal peripheral pulses, normal rate, regular rhythm Abdomen: normal bowel sounds, soft, non tender, no organomegaly, non distended , no mass Extremities: no cyanosis, no clubbing, no edema Microbiology Date/Time Source Procedure Growth Status 06/02/19 02:00 Blood Blood Culture - Preliminary NO GROWTH AFTER 24 HOURS Resulted 06/02/19 01:50 Blood Blood Culture - Preliminary NO GROWTH AFTER 24 HOURS Resulted Laboratory Tests 06/03/19 04:00: White Blood Count 9.0, Red Blood Count 3.50L, Hemoglobin 8.6L, Hematocrit 29.1L , Mean Corpuscular Volume 83, Mean Corpuscular Hemoglobin 24.4L, Mean Corpuscular Hemoglobin Concent 29.4L, Red Cell Distribution Width 21.2H, Platelet Count 182, Mean Platelet Volume 5.6L, Neutrophils (%) (Auto) 71.3, Lymphocytes (%) (Auto) 12.1L, Monocytes (%) (Auto) 11.2H, Eosinophils (%) (Auto ) 4.8H, Basophils (%) (Auto) 0.7, Sodium Level 139, Potassium Level 3.9, Chloride Level 101, Carbon Dioxide Level 36H, Anion Gap 3L, Blood Urea Nitrogen 20H, Creatinine 0.9, Estimat Glomerular Filtration Rate , Glucose Level 84, Calcium Level 9.0, Total Bilirubin 0.1L, Aspartate Amino Transf (AST/SGOT) 14L, Alanine Aminotransferase (ALT/SGPT) 11L, Alkaline Phosphatase 67, Pro-B-Type Natriuretic Peptide 109, Total Protein 6.1L, Albumin 3.0L, Globulin 3.1, Albumin /Globulin Ratio 1.0 Current Medications Medications (Trade) Dose Ordered Sig/Narcisa Route PRN Reason Start Time Stop Time Status Last Admin Dose Admin Albuterol/ Ipratropium (Albuterol/ Ipratropium) 3 ml Q4H PRN HHN Shortness of Breath 06/02/19 13:30 06/07/19 13:29 Albuterol/ Ipratropium (Albuterol/ Ipratropium) 3 ml Q6HRT HHN 06/02/19 19:00 06/07/19 18:59 06/03/19 13:16 Chlorthalidone (Chlorthalidone) 25 mg DAILY ORAL 06/02/19 09:00 07/02/19 08:59 06/03/19 09:28 Clonidine HCl (Catapres Tab) 0.1 mg Q6H PRN ORAL For High Blood Pressure 06/02/19 07:45 07/02/19 07:44 Ferrous Sulfate (Feosol) 325 mg DAILY ORAL 06/02/19 09:00 07/02/19 08:59 06/03/19 09:28 Heparin Sodium (Porcine) (Heparin 5000 units/ml) 5,000 units EVERY 12 HOURS SUBQ 06/02/19 09:00 07/02/19 08:59 06/03/19 09:33 Methadone HCl (Methadone HCl) 60 mg DAILY ORAL 06/02/19 15:00 06/09/19 14:59 06/03/19 09:29 Metronidazole (Flagyl) 500 mg Q8HR ORAL 06/02/19 14:00 06/09/19 13:59 06/03/19 14:05 Prednisone (predniSONE) 60 mg DAILY ORAL 06/03/19 09:00 07/03/19 08:59 06/03/19 09:29 Salmeterol Xinafoate/ Fluticasone (Advair 250/50 Diskus) 1 puffs BID INH 06/02/19 18:00 07/02/19 17:59 06/03/19 08:45 Sodium Chloride 1,000 ml @ 75 mls/hr [id number] IV 06/02/19 07:45 07/02/19 07:44 06/03/19 10:35 Terazosin HCl (Hytrin) 10 mg BEDTIME ORAL 06/02/19 21:00 07/02/19 20:59 06/02/19 20:12 Tiotropium Kulm (Spiriva Inhaler) 1 puff DAILY INH 06/03/19 09:00 07/03/19 08:59 06/03/19 08:45 Clemente Christiansen MD Jun 03, 2019 15:14
[2019-06-03 16:00] VITALS: BP 125/80
[2019-06-03] MEDS ORDERED: 1/2 NS 1000ml IV ONE (16:57)
--- NOTE | 2019-06-04 08:42 | Discharge Summary ---
Discharge Summary Discharge Summary _ DATE OF ADMISSION: 06/02/2019 DATE OF DISCHARGE: 06/03/2019 DISCHARGED BY: Dr. Farhat Welsh CONSULTANTS: Dr. Clemente Christiansen BRIEF HOSPITAL COURSE: Patient is an unfortunate 73-year-old gentleman with history of non-small cell CA of the lung, on immunotherapy, history of chronic hypercapnic respiratory failure, history of chronic obstructive pulmonary disease and history of known IV drug use with heroin and cocaine, on methadone, history of hepatitis B, presented to ER due to increased shortness of breath over the past few days associated with cough. He was taken by EMS to ED. He was given breathing treatments and was started on CPAP by EMS. On evaluation at the ED, he was started on supplemental oxygen and BiPAP due to increased difficulty with respirations. He was noted to have some improvement after IV steroids and breathing treatment. Blood work did not show any leukocytosis. Hemoglobin 9.4, hematocrit 32. Electrolytes were normal. Troponin was negative. proBNP 34. ABG showed pH 7.3, CO2 69, HCO3 33, base excess 4.8. Chest x-ray did not show any acute process, there was a noted right chest port catheter, tip at the level of the superior vena cava. He was then admitted for evaluation of shortness of breath, noted to be hypercarbic, requiring BiPAP, with worsening of COPD exacerbation. Patient was admitted to [facility]. [employer] was consulted. He was given round- the-clock duo nebs. He was continued on Advair, Spiriva, and Daliresp. He was counseled on abstinence from tobacco use. He was eventually tapered off BiPAP support. He was placed on nasal cannula with BiPAP PRN and nightly. He was started on prednisone 60 mg tab daily. Venous duplex was negative for acute DVT. Patient was saturating well and symptoms improved. Cough and shortness of breath was at baseline. There was no fever or chills, no chest pain. Patient was advised to continue prednisone 60 mg to complete total of 5 days. Patient to continue to use his own Trilogy ventilator at home. He was instructed need to follow-up post discharge for a chest CT as previously planned. Due to rapid unexpected improvement in patient's symptoms, patient was discharged home the following day. FINAL DIAGNOSES: Acute on chronic hypercapnic and hypoxemic respiratory failure Acute exacerbation of COPD Non-small cell lung carcinoma (adenocarcinoma) on immunotherapy Multiple lower lobe predominant, centrilobular nodular opacities suggestive of infectious or inflammatory bronchiolitis such as respiratory bronchiolitis associated interstitial lung disease (RB-ILD), progress on follow-up imaging Questionable left lower lobe opacity seen on 04/14/2019 CT chest, which was new Recent pseudomonal pneumonia History of positive quantitative gold but negative AFB Extensive tobacco use Intravenous drug and cocaine use Hepatitis B DISPOSITION: Patient was discharged home. DISCHARGE MEDICATIONS: Refer to Discharge Medication List. Continue prednisone 60 mg daily for 3 more days. Resume Trelegy inh. DISCHARGE INSTRUCTIONS: Follow-up in a week. Needs post discharge follow-up CT as previously planned. I have been assigned to complete a discharge summary on this account, I was not involved with the patient's management.--MARIAH Zepeda Jacqueline Robles NP Jun 04, 2019 08:42
== END 2019-06-03 16:58 | disposition home or self-care (01) | DRG 190 ==
LOC: EDBD 01:51 → EDUNIT# 01:51 → EMR 02:00 → 2W 02:41 → EDBEDREQ 05:34
PROC: 5A09357 Assistance with Respiratory Ventilation, Less than 24 Consecutive Hours, Continuous Positive Airway Pressure (ICD-10-PCS; principal; 2019-06-02)
DX: J44.1 Chronic obstructive pulmonary disease with (acute) exacerbation (principal); J96.22 Acute and chronic respiratory failure with hypercapnia; J96.21 Acute and chronic respiratory failure with hypoxia; B19.10 Unspecified viral hepatitis B without hepatic coma; C34.90 Malignant neoplasm of unspecified part of unspecified bronchus or lung; F11.20 Opioid dependence, uncomplicated; J84.115 Respiratory bronchiolitis interstitial lung disease; F17.200 Nicotine dependence, unspecified, uncomplicated; F14.10 Cocaine abuse, uncomplicated
CPT/HCPCS: 36415; 36600; 71045; 80053; 82550; 82553; 82803; 83605; 83735; 83880; 84100; 84484; 85025; 87040; 87081; 93005; 93970; 94640; 94660; 94664; 96361; 96374; 99285; J7620

== ENCOUNTER 2020-03-22 13:53 | Inpatient (IN) | payer MEDICARE, OTHER ==
[~2020-03-22] VITALS: Ht 177.8 cm; Wt 68.5 kg
[~2020-03-22 13:53] MED LIST changes: +ASPIRIN81 MG ORAL; +CATAPRES0.1 MG ORAL; +CHLORTHALIDONE25 MG ORAL; +LISINOPRIL; +asa
--- NOTE | 2020-03-22 13:58 | Emergency Room Report ---
History of Present Illness General Chief Complaint: Overdose Present Illness HPI 74-year-old male history of cancer stage IV lung cancer, was undergoing treatment today, patient is also on methadone, patient felt sleepier, was unresponsive found to have pinpoint pupils was given Narcan in the field patient 's respiratory rate increased, patient woke up, history is limited due to patient's sleepiness currently, patient was brought in by EMS for evaluation Allergies: Coded Allergies: No Known Allergies (Unverified , 08/06/15) COVID-19 Screening Contact w/high risk pt: No Recent Travel to affected area: No Experienced COVID-19 symptoms?: No Patient History Limited by: medical condition - Currently sleepy Past Medical History: see triage record Reviewed Nursing Documentation: PMH: Agreed; PSxH: Agreed Nursing Documentation-PMH Hx Cardiac Problems: Yes Hx Hypertension: Yes Hx COPD: Yes Hx Cancer: Yes - Lung Hx Gastrointestinal Problems: No Hx Neurological Problems: No Review of Systems All Other Systems: limited - Sleepy Physical Exam Vital Signs Date Time Temp Pulse Resp B/P (MAP) Pulse Ox O2 Delivery O2 Flow Rate FiO2 03/22/20 13:48 98.1 102 20 131/82 (98) 98 Non-Rebreather 15.0 General Appearance: well appearing, no apparent distress, other - sleepy Head: normocephalic, atraumatic ENT: hearing grossly normal, normal voice Neck: full range of motion, supple Respiratory: no respiratory distress, speaking full sentences Neurologic: alert, responsive Psychiatric: mood/affect normal Skin: no rash Medical Decision Making Diagnostic Impression: Primary Impression: Drug overdose Qualified Codes: T50.901A - Poisoning by unspecified drugs, medicaments and biological substances, accidental (unintentional), initial encounter ER Course 74-year-old male presents with opioid overdose, patient is on chronic methadone , patient will be admitted to the hospital for continued monitoring due to the long half-life of methadone patient is currently airway, patient ready received naloxone, will continue to monitor his respiratory status patient admitted to Dr. Welsh Laboratory Tests Test 03/22/20 14:10 White Blood Count 9.4 K/UL (4.8-10.8) Red Blood Count 3.88 M/UL (4.70-6.10) L Hemoglobin 10.0 G/DL (14.2-18.0) L Hematocrit 34.2 % (42.0-52.0) L Mean Corpuscular Volume 88 FL (80-99) Mean Corpuscular Hemoglobin 25.8 PG (27.0-31.0) L Mean Corpuscular Hemoglobin Concent 29.2 G/DL (32.0-36.0) L Red Cell Distribution Width 21.6 % (11.6-14.8) H Platelet Count 268 K/UL (150-450) Mean Platelet Volume 5.7 FL (6.5-10.1) L Neutrophils (%) (Auto) 69.9 % (45.0-75.0) Lymphocytes (%) (Auto) 8.9 % (20.0-45.0) L Monocytes (%) (Auto) 11.4 % (1.0-10.0) H Eosinophils (%) (Auto) 9.1 % (0.0-3.0) H Basophils (%) (Auto) 0.7 % (0.0-2.0) Sodium Level 142 MMOL/L (136-145) Potassium Level 3.8 MMOL/L (3.5-5.1) Chloride Level 99 MMOL/L (98-107) Carbon Dioxide Level > 45 MMOL/L (21-32) *H Blood Urea Nitrogen 17 mg/dL (7-18) Creatinine 1.1 MG/DL (0.55-1.30) Estimated Glomerular Filtration Rate > 60 mL/min (>60) Glucose Level 85 MG/DL (74-106) Calcium Level 7.9 MG/DL (8.5-10.1) L Total Bilirubin 0.3 MG/DL (0.2-1.0) Aspartate Amino Transferase (AST) 26 U/L (15-37) Alanine Aminotransferase (ALT) 23 U/L (12-78) Alkaline Phosphatase 68 U/L (46-116) Creatine Kinase MB 4.4 NG/ML (0.0-3.6) H Total Protein 6.8 G/DL (6.4-8.2) Albumin 2.8 G/DL (3.4-5.0) L Globulin 4.0 g/dL Albumin/Globulin Ratio 0.7 (1.0-2.7) L EKG Diagnostic Results EKG Time: 14:01 EP Interpretation: NSR, rate 75, QTc 498, no acute ST elevations, normal axis Rhythm Strip Diag. Results Rhythm Strip Time: 14:10 EP Interpretation: yes Rate: 109 Rhythm: other - Sinus Tachycardia Chest X-Ray Diagnostic Results Chest X-Ray Diagnostic Results : Chest X-Ray Ordered: Yes Indication: Shortness of Breath EP Interpretation: Yes Interpretation: no consolidation, no effusion, no pneumothorax, no acute cardiopulmonary disease Impression: No acute disease Electronically Signed by: Dread Garza MD Last Vital Signs Date Time Temp Pulse Resp B/P (MAP) Pulse Ox O2 Delivery O2 Flow Rate FiO2 03/22/20 13:48 98.1 102 20 131/82 (98) 98 Non-Rebreather 15.0 Disposition: ADMITTED INPATIENT Condition: Stable Dread Garza MD Mar 22, 2020 13:58
[2020-03-22] MEDS ORDERED: Naloxone 0.4mg/ml Inj IVP ONE ×2 (14:00→19:45)
[2020-03-22 14:10] VITALS: BP 145/89
--- NOTE | 2020-03-22 14:10 | NUR ---
ED Nurse Note: [facility]. Pt came with meth overdose and was given Narcan by ambulance. Pt is alert and orientedx3, drowsy. Pt has lung cancer stage 4. Pt is set up on monitor. Pt has R portcath on chest. 98% 4L NC, 145/89, HR 87, R 32. aware of VS.
[2020-03-22 14:20] LABS: BASOPHILS % (AUTO) 0.7 % (0.0-2.0); EOSINOPHILS % (AUTO) 9.1 % (0.0-3.0); HEMATOCRIT 34.2 % (42.0-52.0); LYMPHOCYTES % (AUTO) 8.9 % (20.0-45.0); MEAN CORPUSCULAR VOLUME 88 FL (80-99); MONOCYTES % (AUTO) 11.4 % (1.0-10.0); NEUTROPHILS % (AUTO) 69.9 % (45.0-75.0); PLATELET COUNT 268 K/UL (150-450); RED BLOOD COUNT 3.88 M/UL (4.70-6.10); RED CELL DISTRIBUTION WIDTH 21.6 % (11.6-14.8); WHITE BLOOD COUNT 9.4 K/UL (4.8-10.8)
[2020-03-22 14:29] LABS: BLOOD UREA NITROGEN 17 mg/dL (7-18); CALCIUM 7.9 MG/DL (8.5-10.1); CHLORIDE 99 MMOL/L (98-107); CREATININE 1.1 MG/DL (0.55-1.30); POTASSIUM 3.8 MMOL/L (3.5-5.1); SODIUM 142 MMOL/L (136-145)
[2020-03-22 14:42] LABS: ALANINE AMINOTRANSFERASE 23 U/L (12-78); ALBUMIN 2.8 G/DL (3.4-5.0); ALBUMIN/GLOBULIN RATIO 0.7 (1.0-2.7); ALKALINE PHOSPHATASE 68 U/L (46-116); ASPARTATE AMINO TRANSFERASE 26 U/L (15-37); BILIRUBIN,TOTAL 0.3 MG/DL (0.2-1.0); CKMB 4.4 NG/ML (0.0-3.6)
[2020-03-22 14:44] LABS: CARBON DIOXIDE > 45 MMOL/L (21-32)
--- NOTE | 2020-03-22 14:53 | Diagnostic Imaging Report ---
Indication: Chest pain. Altered mental status. Technique: XRAY Chest 1v Comparison: 06/02/2019 Findings: Chest wall Mediport has its catheter tip in the region of the cavoatrial junction. Heart appears mildly enlarged. Sternal contours are sharp. There are atherosclerotic calcifications in the aorta. There is pulmonary vascular prominence. Some possible hazy opacities in the right midlung. No pneumothorax or pleural effusion. There are degenerative changes in the spine. No acute osseous abnormality. Impression: Pulmonary vascular prominence may suggest mild congestive changes/fluid overload. Question subtle developing infiltrate in the right midlung. Indwelling right chest wall Mediport.
[2020-03-22] MEDS ORDERED: KLONOPIN1 MG ORAL (14:58)
[2020-03-22] MEDS ORDERED: ATORVASTATIN CA20 MG ORAL (14:58)
[2020-03-22] MEDS ORDERED: COLACE100 MG ORAL (14:58)
[2020-03-22] MEDS ORDERED: VITAMIN D210 MCG ORAL (15:01)
[2020-03-22] MEDS ORDERED: FLOMAX0.4 MG ORAL (15:01)
[2020-03-22] MEDS ORDERED: PREDNISONE20 MG ORAL (15:08)
[2020-03-22] MEDS ORDERED: MIRALAX17 G2 ORAL (15:08)
[2020-03-22] MEDS ORDERED: KEYTRUDA100 MG/4 M IV (15:08)
[2020-03-22] MEDS ORDERED: ONDANSETRON ODT4 MG BC (15:08)
[2020-03-22] MEDS ORDERED: AVAPRO150 MG ORAL (15:08)
[2020-03-22] MEDS ORDERED: SENNA8.6 M2 PO (15:17)
[2020-03-22] MEDS ORDERED: DALIRESP250 MCG PO (15:17)
[2020-03-22] MEDS ORDERED: REVATIO20 MG ORAL (15:17)
[2020-03-22] MEDS ORDERED: PROTONIX40 MG ORAL (15:17)
--- NOTE | 2020-03-22 15:20 | NUR ---
ED Nurse Note: Dr Garza notified BP 89/54. 1 L NS ordered.
[2020-03-22] MEDS ORDERED: ROXICODONE15 MG ORAL (15:21)
[2020-03-22] MEDS ORDERED: VIBRAMYCIN100 MG ORAL (15:21)
[2020-03-22] MEDS ORDERED: FUROSEMIDE20 M1 ORAL (15:21)
[2020-03-22] MEDS ORDERED: Miralax 17gm pkt ORAL PRN ×2 (15:45→21:15)
[2020-03-22] MEDS ORDERED: Albuterol 90mcg Inhaler 8gm INH PRN (15:45)
[2020-03-22] MEDS: D5 1/2NS 1,000 ML IV SCH (16:16)
[2020-03-22] MEDS: cefTRIAXone 1 GM in NS 55 ML IVPB SCH (16:46)
[2020-03-22] MEDS: Enoxaparin 40mg Inj SUBQ SCH (16:47)
[2020-03-22 18:01] VITALS: BP 141/79
--- NOTE | 2020-03-22 18:45 | Consultation ---
Jf Rubina SENIOR LINUX UNIX ENGINEER 03/22/20 1845: History of Present Illness General Date patient seen: Mar 22, 2020 Time patient seen: 15:30 Chief Complaint: Overdose Referring physician: Dr Welsh Reason for Consultation: Lung Ca st 4, on immunotherapy Present Illness HPI 74 years old male with past medical history of hypertension, COPD, chronic hypercapnic hypoxemic respiratory failure, non-small cell lung carcinoma/ adenocarcinoma, history of Pseudomonal pneumonia, history of positive QuantiFERON gold and negative AFB, extensive tobacco use, history of heroine and cocaine abuse, hepatitis B, under care of oncologist Dr Montero. Patient was at Dr Montero office earlier today. Patient on chronic methadone at home. Patient felt sleepy and was later unresponsive . Patient was found to have pinpoint pupils. Paramedics were called . Patient received first Narcan in the field with improvement in RR. Second Narcan was given in the emergency room. Patient initially was on 100% nonrebreathing mask , however was able soon to be wean to oxygen via nasal cannula m; ild tachycardia resolved, but patient remained tachypneic. No fevers. Chest x-ray demonstrated pulmonary vascular prominence , possible mild congestive changes/fluid overload. Questionable subtle developing infiltrate in the right midlung. Indwelling right chest wall Mediport noted. No pneumothorax , no pleural effusion. Laboratory work-up revealed no leukocytosis ,hemoglobin 10, hematocrit 34.2 platelet count 268 , evidence of lymphopenia with lymphocyte 8.9% . Chemistry showed CO2 above 45 , otherwise stable electrolytes and renal parameters. Glucose 85. Stable LFT. Albumin 2.8. proBNP 507. Urine toxicology screen was positive for cocaine and marijuana. Pulmonary consult was requested to assist in management of this patient. Patient follows up with Dr Christiansen as outpatient and well known to him. Allergies: Coded Allergies: No Known Allergies (Unverified , 08/06/15) Medication History Scheduled Amlodipine Besylate* (Amlodipine Besylate*), 10 MG ORAL DAILY, (Reported) Aspirin* (Aspir 81*), 81 MG ORAL DAILY, (Reported) Aspirin* (Aspirin*), Unknown Dose ORAL DAILY, (Reported) Aspirin* (Aspir 81*), 81 MG ORAL DAILY, (Reported) Atorvastatin Calcium* (Atorvastatin Calcium*), 10 MG ORAL BEDTIME, (Reported) Chlorthalidone* (Chlorthalidone*), Unknown Dose ORAL DAILY, (Reported) Clonazepam* (Klonopin*), 2 MG ORAL BID, (Reported) Clonidine Hcl* (Catapres*), Unknown Dose ORAL EVERY 6 HOURS, (Reported) Doxycycline Hyclate* (Vibramycin*), 100 MG ORAL EVERY 12 HOURS, (Reported) Furosemide* (Lasix*), 20 MG ORAL DAILY, (Reported) Irbesartan* (Avapro*), 150 MG ORAL DAILY, (Reported) Methadone Hcl* (Methadone*), 60 MG PO DAILY, (Reported) Metronidazole* (Flagyl*), 500 MG ORAL EVERY 8 HOURS Pantoprazole* (Protonix*), 40 MG ORAL DAILY, (Reported) Pembrolizumab (Keytruda), 200 MG IV every 3 weeks , (Reported) Prednisone* (Prednisone*), 20 MG ORAL DAILY, (Reported) Roflumilast (Daliresp), 500 MCG PO DAILY, (Reported) Sildenafil Citrate (Revatio), 20 MG ORAL BID, (Reported) Tamsulosin HCl (Flomax), 0.4 MG ORAL BID, (Reported) Terazosin Hcl (Terazosin Hcl), 10 MG ORAL HS, (Reported) Scheduled PRN Docusate Sodium* (Colace*), 100 MG ORAL TWICE A DAY PRN for Constipation, ( Reported) OXYCODONE HCl* (Roxicodone*), 20 MG ORAL Q6H PRN for For Pain, (Reported) Ondansetron Odt* (Zofran Odt*), 4 MG BC EVERY 8 HOURS PRN for Nausea & Vomiting, (Reported) Polyethylene Glycol 3350* (Miralax*), 17 GM ORAL DAILY PRN for Constipation, ( Reported) Sennosides (Senna), 17.2 MG PO NEEDED PRN for Constipation, (Reported) Miscellaneous Medications Ergocalciferol (Vitamin D2) (Vitamin D2), 1.25 MG ORAL, (Reported) Ferrous Sulfate (Iron), 325 MG PO, (Reported) [asa], Unknown Dose, (Reported) [lisnapril], Unknown Dose, (Reported) Patient History Healthcare decision maker Resuscitation status Advanced Directive on File Review of Systems ROS Narrative unable to obtain due to altered mental status Physical Exam General Appearance: other - cachectic AA male drowsy, arousable after multiple shaking but falling asleep fast Lines, tubes and drains: peripheral HEENT: normocephalic, atraumatic, anicteric, mucous membranes moist Neck: non-tender, supple Respiratory/Chest: chest wall non-tender, no accessory muscle use, decreased breath sounds - few isolated rhonchi Cardiovascular/Chest: normal rate, regular rhythm Abdomen: normal bowel sounds, non tender, soft Extremities: no calf tenderness, normal capillary refill, no edema Skin Exam: normal pigmentation, warm/dry Neurologic: other - very drowsy but arousable, no gross focal Musculoskeletal: normal muscle bulk Last 24 Hour Vital Signs Date Time Temp Pulse Resp B/P (MAP) Pulse Ox O2 Delivery O2 Flow Rate FiO2 03/22/20 18:01 98.1 80 30 141/79 97 Nasal Cannula 4.0 03/22/20 14:10 98.1 87 32 145/89 98 Nasal Cannula 4.0 03/22/20 14:10 87 32 Nasal Cannula 4.0 98 03/22/20 13:48 98.1 102 20 131/82 (98) 98 Non-Rebreather 15.0 Laboratory Tests Test 03/22/20 14:10 03/22/20 15:24 White Blood Count 9.4 K/UL (4.8-10.8) Red Blood Count 3.88 M/UL (4.70-6.10) L Hemoglobin 10.0 G/DL (14.2-18.0) L Hematocrit 34.2 % (42.0-52.0) L Mean Corpuscular Volume 88 FL (80-99) Mean Corpuscular Hemoglobin 25.8 PG (27.0-31.0) L Mean Corpuscular Hemoglobin Concent 29.2 G/DL (32.0-36.0) L Red Cell Distribution Width 21.6 % (11.6-14.8) H Platelet Count 268 K/UL (150-450) Mean Platelet Volume 5.7 FL (6.5-10.1) L Neutrophils (%) (Auto) 69.9 % (45.0-75.0) Lymphocytes (%) (Auto) 8.9 % (20.0-45.0) L Monocytes (%) (Auto) 11.4 % (1.0-10.0) H Eosinophils (%) (Auto) 9.1 % (0.0-3.0) H Basophils (%) (Auto) 0.7 % (0.0-2.0) Sodium Level 142 MMOL/L (136-145) Potassium Level 3.8 MMOL/L (3.5-5.1) Chloride Level 99 MMOL/L (98-107) Carbon Dioxide Level > 45 MMOL/L (21-32) *H Blood Urea Nitrogen 17 mg/dL (7-18) Creatinine 1.1 MG/DL (0.55-1.30) Estimat Glomerular Filtration Rate > 60 mL/min (>60) Glucose Level 85 MG/DL (74-106) Calcium Level 7.9 MG/DL (8.5-10.1) L Total Bilirubin 0.3 MG/DL (0.2-1.0) Aspartate Amino Transf (AST/SGOT) 26 U/L (15-37) Alanine Aminotransferase (ALT/SGPT) 23 U/L (12-78) Alkaline Phosphatase 68 U/L (46-116) Creatine Kinase MB 4.4 NG/ML (0.0-3.6) H Pro-B-Type Natriuretic Peptide 507 pg/mL (0-125) H Total Protein 6.8 G/DL (6.4-8.2) Albumin 2.8 G/DL (3.4-5.0) L Globulin 4.0 g/dL Albumin/Globulin Ratio 0.7 (1.0-2.7) L Urine Opiates Screen Positive (NEGATIVE) H Urine Barbiturates Screen Negative (NEGATIVE) Phencyclidine (PCP) Screen Negative (NEGATIVE) Urine Amphetamines Screen Negative (NEGATIVE) Urine Benzodiazepines Screen Negative (NEGATIVE) Urine Cocaine Screen Positive (NEGATIVE) H Urine Marijuana (THC) Screen Positive (NEGATIVE) H Height (Feet): 5 Height (Inches): 10.00 Weight (Pounds): 150 Medications Current Medications Medications (Trade) Dose Ordered Sig/Narcisa Route PRN Reason Start Time Stop Time Status Last Admin Dose Admin Acetaminophen (Tylenol) 650 mg Q4H PRN ORAL Mild Pain (Pain Scale 1-3) 03/22/20 15:45 04/21/20 15:44 Albuterol Sulfate (Proventil MDI) 2 puff Q4H PRN INH Shortness of Breath 03/22/20 15:45 06/20/20 15:44 UNV Amlodipine Besylate (Norvasc) 10 mg DAILY ORAL 03/23/20 09:00 04/22/20 08:59 Aspirin (ASA) 81 mg DAILY ORAL 03/23/20 09:00 05/07/20 08:59 Atorvastatin Calcium (Lipitor) 10 mg BEDTIME ORAL 03/22/20 21:00 06/20/20 20:59 UNV Ceftriaxone Sodium 1 gm/ Sodium Chloride 55 ml @ 110 mls/hr Q24H IVPB 03/22/20 17:00 03/29/20 16:59 03/22/20 16:46 Dextrose (Dextrose 50%) 25 ml Q30M PRN IV Hypoglycemia 03/22/20 15:45 06/20/20 15:44 Dextrose (Dextrose 50%) 50 ml Q30M PRN IV Hypoglycemia 03/22/20 15:45 06/20/20 15:44 Dextrose/Sodium Chloride 1,000 ml @ 50 mls/hr DAILY IV 03/22/20 15:45 04/21/20 15:44 03/22/20 16:16 Docusate Sodium (Colace) 100 mg EVERY 12 HOURS ORAL 03/22/20 21:00 04/21/20 20:59 Enoxaparin Sodium (Lovenox) 40 mg Q24H SUBQ 03/22/20 17:00 06/20/20 16:59 03/22/20 16:47 Magnesium Hydroxide (Mom) 30 ml HSPRN PRN ORAL Constipation 03/22/20 15:45 04/21/20 15:44 UNV Ondansetron HCl (Zofran) 4 mg Q6H PRN IVP Nausea & Vomiting 03/22/20 15:45 04/21/20 15:44 Polyethylene Glycol (Miralax) 17 gm DAILYPRN PRN ORAL Constipation 03/22/20 15:45 04/21/20 15:44 Sildenafil Citrate (Revatio) 20 mg BID ORAL 03/22/20 18:00 06/20/20 17:59 UNV Tamsulosin HCl (Flomax) 0.4 mg BID ORAL 03/22/20 18:00 04/21/20 17:59 Assessment/Plan Assessment/Plan: ASSESSMENT Acute toxic encephalopathy 2 to methadone overdose/ and probably cocaine intoxication Non-small cell lung carcinoma/adenocarcinoma st 4, on immunotherapy Chronic hypoxemic and hypercapnic respiratory failure ( O2 dependent at home) COPD, possible exacerbation Multiple lower lobe predominantly central lobular nodular opacities, suggestive of bronchiolitis ( infectious vs inflammatory)-recurrent with tree in bud nodularity Tobacco abuse Hx of Pseudomonas PNA History of positive Quantiferon gold and negative AFB Hepatitis B Polysubstance abuse : heroin, cocaine HTN Anemia Cachexia, probably protein calore malnutrition PLAN OF CARE tele isolation SARS-CoV-2 by PCR ( given severe immunocompromised status) gentle IV hydration, cardiac diet when more awake O2 titrate to keep sat above 90% Proventil MDI until COVID result available ABG will hold on steroids for now, doubt COPD exacerbation, will monitor start empiric abx, for possible PNA fup with CXR in am resume home meds dietary eval re protein supplements when more awake senior counsel commercial on smoking cessation and abstinence from illicit street drugs case discussed and evaluated by supervising physician Clemente Christiansen MD 03/23/20 1445: History of Present Illness General Chief Complaint: Overdose Present Illness Allergies: Coded Allergies: No Known Allergies (Unverified , 08/06/15) Medication History Scheduled Amlodipine Besylate* (Amlodipine Besylate*), 10 MG ORAL DAILY, (Reported) Aspirin* (Aspir 81*), 81 MG ORAL DAILY, (Reported) Aspirin* (Aspirin*), Unknown Dose ORAL DAILY, (Reported) Aspirin* (Aspir 81*), 81 MG ORAL DAILY, (Reported) Atorvastatin Calcium* (Atorvastatin Calcium*), 10 MG ORAL BEDTIME, (Reported) Chlorthalidone* (Chlorthalidone*), Unknown Dose ORAL DAILY, (Reported) Clonazepam* (Klonopin*), 2 MG ORAL BID, (Reported) Clonidine Hcl* (Catapres*), Unknown Dose ORAL EVERY 6 HOURS, (Reported) Doxycycline Hyclate* (Vibramycin*), 100 MG ORAL EVERY 12 HOURS, (Reported) Furosemide* (Lasix*), 20 MG ORAL DAILY, (Reported) Irbesartan* (Avapro*), 150 MG ORAL DAILY, (Reported) Methadone Hcl* (Methadone*), 60 MG PO DAILY, (Reported) Metronidazole* (Flagyl*), 500 MG ORAL EVERY 8 HOURS Pantoprazole* (Protonix*), 40 MG ORAL DAILY, (Reported) Pembrolizumab (Keytruda), 200 MG IV every 3 weeks , (Reported) Prednisone* (Prednisone*), 20 MG ORAL DAILY, (Reported) Roflumilast (Daliresp), 500 MCG PO DAILY, (Reported) Sildenafil Citrate (Revatio), 20 MG ORAL BID, (Reported) Tamsulosin HCl (Flomax), 0.4 MG ORAL BID, (Reported) Terazosin Hcl (Terazosin Hcl), 10 MG ORAL HS, (Reported) Scheduled PRN Docusate Sodium* (Colace*), 100 MG ORAL TWICE A DAY PRN for Constipation, ( Reported) OXYCODONE HCl* (Roxicodone*), 20 MG ORAL Q6H PRN for For Pain, (Reported) Ondansetron Odt* (Zofran Odt*), 4 MG BC EVERY 8 HOURS PRN for Nausea & Vomiting, (Reported) Polyethylene Glycol 3350* (Miralax*), 17 GM ORAL DAILY PRN for Constipation, ( Reported) Sennosides (Senna), 17.2 MG PO NEEDED PRN for Constipation, (Reported) Miscellaneous Medications Ergocalciferol (Vitamin D2) (Vitamin D2), 1.25 MG ORAL, (Reported) Ferrous Sulfate (Iron), 325 MG PO, (Reported) [asa], Unknown Dose, (Reported) [lisnapril], Unknown Dose, (Reported) Assessment/Plan Assessment/Plan: Patient seen and examined with SENIOR LINUX UNIX ENGINEER. Agree with A&P as it reflects our joint deliberations. Patient with CRF home NIPPV dependant at night, needs at least nocturnal NIPPV once COVID ruled out. Rubina Rhoades NP Mar 22, 2020 18:45 Clemente Christiansen MD Mar 23, 2020 14:45
[2020-03-22] MEDS: Tamsulosin 0.4mg cap ORAL SCH (19:15)
--- NOTE | 2020-03-22 19:27 | NUR ---
ED Nurse Note: pt received from HILLARY Smith, plan of care was endorsed. pt is sleeping in bed with stable vital signs, hypotensive at 97/64, ERMD made aware. pt is coughing, not arousing to name but arousable to painful stimuli, ERMD states he will order narcan for pt. port-a-cath line is intact and paten,t flushing well.
--- NOTE | 2020-03-22 19:47 | NUR ---
ED Nurse Note: narcan administered per ERMD orders, pt is arousable to name and touch but falls back to sleep. he has a dinner tray at bedside and has been encouraged to eat. VSS, pt is on 4L O2 NC
[2020-03-22 20:01] VITALS: BP 98/52
[2020-03-22] MEDS: Revatio 20mg tab ORAL SCH (20:01)
[2020-03-22 20:24] VITALS: BP 124/74
[2020-03-22] MEDS ORDERED: Milk of Magnesia 30ml Ud ORAL PRN (21:00)
[2020-03-22] MEDS: Docusate 100mg cap ORAL SCH (21:00)
--- NOTE | 2020-03-22 21:13 | NUR ---
ED Nurse Note: report given to HILLARY Peralta
[2020-03-22 22:00] VITALS: BP 121/68
--- NOTE | 2020-03-22 22:30 | History and Physical Report ---
DATE OF ADMISSION: 03/22/2020 HISTORY OF PRESENT ILLNESS: The patient is an unfortunate 74-year-old gentleman with history of stage IV lung cancer, on immunotherapy, followed by Dr. Montero, history of chronic pain on methadone, history of drug abuse including heroin and cocaine, and history of smoking, who was brought in to the [place] ER secondary by paramedics secondary to be found unresponsive and had pinpoint pupils. The patient was given Narcan in the ER with improvement of his mental status and is being admitted. The patient has a history of chronic hypoxemic and chronic hypercapnic respiratory failure and is on oxygen at home, history of COPD as well, history of pneumonias and bronchitis, history of bronchiolitis, history of hypertension, history of anemia, history of hepatitis B, history of positive QuantiFERON and negative AFB, history of previous Pseudomonas pneumonia, history of protein-calorie malnutrition. MEDICATIONS: Please see his reconciled medication list. ALLERGIES: No known. SOCIAL HISTORY: The patient is a smoker and continues to smoke. He does have a history of drug use and continues to use heroin, cocaine, and marijuana despite multiple attempts telling to stop. REVIEW OF SYSTEMS: The patient is currently sleepy. PHYSICAL EXAMINATION: GENERAL: He is chronically ill-appearing, in no apparent distress. VITAL SIGNS: Revealed a blood pressure of 145/89, respirations of 20-30, saturations 97% to 98%, temperature 98.1. HEENT: Head is normocephalic, atraumatic. Pupils reactive to light. Extraocular muscles are intact. Eyes are anicteric. Conjunctivae pale. NECK: Supple. No JVP. LUNGS: Decreased breath sounds. HEART: Regular rate and rhythm. ABDOMEN: Soft. Positive bowel sounds. Nondistended, nontender. EXTREMITIES: No clubbing, cyanosis, or edema. NEUROLOGIC: He is alert. Nonfocal. LABORATORY AND DIAGNOSTIC DATA: Revealed white count of 9.4, hemoglobin 10, hematocrit 34.2, platelet count 268,000. Sodium 142, potassium 3.8, chloride 99, CO2 more than 45, BUN is 17, creatinine 1.1. Liver function tests are normal. Calcium 7.9. ProBNP is . Albumin 2.8. Urine-tox screen is positive for opiates, positive for marijuana and cocaine. Chest x-ray reveals pulmonary vascular prominence; may suggest mild CHF, fluid overload. EKG noted. ASSESSMENT AND PLAN: The patient is an unfortunate 74-year-old gentleman with history of COPD, history of stage IV lung cancer on immunotherapy, history of chronic hypercapnic respiratory failure, history of drug use, history of methadone use, who presents unresponsive with pinpoint pupil, which reversed with Narcan. The patient will be admitted and will be seen by his cafe worker, Dr. Christiansen. We will place him on a monitored bed. We will place him on isolation. Due to his immunocompromised state, we will check COVID as well, give him IV hydration, and get his ABG. We will start empiric antibiotics for pneumonia. We will follow up chest x-ray. We will hold his methadone for now. We need to reconsider restarting tomorrow as he reawakens. We will again address his drug use and cigarette smoking. The patient should be on DVT and ulcer prophylaxis. Farhat Welsh M.D. DR: Sarkis JOB#: [id number] CC:
--- NOTE | 2020-03-22 23:00 | NUR ---
TRANSFER TO FLOOR: Patient transferred to telemetry as ordered, per ERMD. pt vitals remained stable during transfer. Report given to HILLARY Peralta . Belongings were sent with pt.
--- NOTE | 2020-03-22 23:10 | NUR ---
NURSE NOTES: Received report from HILLARY Dotson. Patient was transported from E.R via gurney to room 207-2 on covid-19 precaution protocol. Patient is awake, alert and oriented x 4. Patient is on cardiac diet, instructed and amenable. monitoring and evaluation advisor is on placed shows sinus rhythm with no chest pain nor discomfort noted at this time. Patient has isrrael cath on right chest with simple dressing covered on it. On fall and aspiration precaution. Safety measures are in placed. Bad alarm is on, side rails up x 2, bed is in low and locked position. Call light and bedside table within reach. Instructed to call for any assistance. Will continue plan of care.
[2020-03-23] VITALS: BP 109/53
[2020-03-23 04:00] VITALS: BP 104/61
--- NOTE | 2020-03-23 05:57 | NUR ---
NURSE NOTES: Spoke with Dr. Welsh and received an order to use isrrael catheter for IV access.
[2020-03-23] MEDS: D5 1/2NS 1,000 ML IV SCH (06:58)
--- NOTE | 2020-03-23 07:29 | NUR ---
HAND-OFF: Report given to HILLARY Becerra. Patient is asleep, awake and no complaints made at this time. Plan of care endorsed.
--- NOTE | 2020-03-23 07:40 | NUR ---
NURSE NOTES: Received report from HILLARY Pepe. Observed pt sleeping, no s/sx of acute distress. Pt on 4L NC, breathing unlabored. Pt has cath on R chest, running IVF at 50ml/hr. Bed on lowest position, call light within reach. Will continue plan of care.
[2020-03-23 07:49] LABS: HEMATOCRIT 32.8 % (42.0-52.0); HEMOGLOBIN 9.6 G/DL (14.2-18.0); LYMPHOCYTES % (AUTO) 14.3 % (20.0-45.0); MEAN CORPUSCULAR VOLUME 89 FL (80-99); MONOCYTES % (AUTO) 13.1 % (1.0-10.0); NEUTROPHILS % (AUTO) 63.5 % (45.0-75.0); PLATELET COUNT 246 K/UL (150-450); RED BLOOD COUNT 3.71 M/UL (4.70-6.10); RED CELL DISTRIBUTION WIDTH 21.8 % (11.6-14.8); WHITE BLOOD COUNT 7.2 K/UL (4.8-10.8)
[2020-03-23 08:00] VITALS: BP 133/55
[2020-03-23 08:01] LABS: BLOOD UREA NITROGEN 12 mg/dL (7-18); CALCIUM 8.1 MG/DL (8.5-10.1); CHLORIDE 100 MMOL/L (98-107); CREATININE 0.9 MG/DL (0.55-1.30); POTASSIUM 3.9 MMOL/L (3.5-5.1); SODIUM 140 MMOL/L (136-145)
[2020-03-23 08:16] LABS: CHOLESTEROL 94 MG/DL (< 200); HDL CHOLESTEROL 47 MG/DL (40-60); TRIGLYCERIDES 46 MG/DL (30-150)
[2020-03-23 08:21] LABS: CARBON DIOXIDE > 45 MMOL/L (21-32)
[2020-03-23] MEDS: Revatio 20mg tab ORAL SCH ×2 (09:02→17:54)
[2020-03-23] MEDS: Docusate 100mg cap ORAL SCH ×2 (09:02→21:29)
[2020-03-23] MEDS: Tamsulosin 0.4mg cap ORAL SCH ×2 (09:03→17:54)
[2020-03-23] MEDS: Aspirin Baby 81mg ORAL SCH (09:03)
--- NOTE | 2020-03-23 09:03 | Pulmonology Progress Note ---
Rubina Rhoades RENTAL CAR DELIVERER 03/23/20 0903: Assessment/Plan Assessment/Plan ASSESSMENT Acute toxic encephalopathy 2 to methadone overdose/ and probably cocaine intoxication -improving Non-small cell lung carcinoma/adenocarcinoma st 4, on immunotherapy Chronic hypoxemic and hypercapnic respiratory failure ( O2 dependent at home) COPD, possible exacerbation Multiple lower lobe predominantly central lobular nodular opacities, suggestive of bronchiolitis ( infectious vs inflammatory)-recurrent with tree in bud nodularity Tobacco abuse Hx of Pseudomonas PNA History of positive Quantiferon gold and negative AFB Hepatitis B Polysubstance abuse : heroin, cocaine HTN Anemia Cachexia, probably protein calore malnutrition PLAN OF CARE tele isolation SARS-CoV-2 by PCR ( given severe immunocompromised status) gentle IV hydration, cardiac diet O2 titrate to keep sat above 90% unable to start BiPAP until CoVID result back CRP 1.1 start Solumedrol 40 mg IV bid and taper down as permitted add Advair and Spiriva MDI until COVID result available Proventil MDI until COVID result available and can initiate HHN fup with ABG - noted, hypoxic but CO2 down continue empiric abx, for possible PNA fup with CXR in am resume home meds dietary eval re protein supplements when more awake supervisor counseling and guidance on smoking cessation and abstinence from illicit street drugs case discussed and evaluated by supervising physician Subjective Allergies: Coded Allergies: No Known Allergies (Unverified , 08/06/15) Subjective more awake, responsive but still sleepy reports SOB on isolation COVID result pending on 4 L of O@ via NC afebrile Objective Last 24 Hour Vital Signs Date Time Temp Pulse Resp B/P (MAP) Pulse Ox O2 Delivery O2 Flow Rate FiO2 03/23/20 04:00 65 03/23/20 04:00 98.2 69 17 104/61 (75) 94 03/23/20 01:46 Nasal Cannula 4.0 03/23/20 00:00 4.0 03/23/20 00:00 97.8 95 19 109/53 (71) 91 03/22/20 23:27 95 03/22/20 23:00 98.1 79 18 121/68 99 Nasal Cannula 4.0 98 03/22/20 22:00 79 18 121/68 99 Nasal Cannula 4.0 98 03/22/20 20:24 124/74 03/22/20 20:01 85 20 98/52 97 Nasal Cannula 4.0 4/29/20 18:01 98.1 80 30 141/79 97 Nasal Cannula 4.0 03/22/20 14:10 98.1 87 32 145/89 98 Nasal Cannula 4.0 03/22/20 14:10 87 32 Nasal Cannula 4.0 98 03/22/20 13:48 98.1 102 20 131/82 (98) 98 Non-Rebreather 15.0 Intake and Output 03/22/20 03/23/20 19:00 07:00 Intake Total 0 ml 150 ml Output Total 290 ml Balance 0 ml -140 ml Intake Oral 0 ml 150 ml Output Urine Total 290 ml # Voids 1 # Bowel Movements 1 Objective General Appearance: cachectic AA male more awake and responsive , still sleepy Lines, tubes and drains: peripheral HEENT: normocephalic, atraumatic, anicteric, mucous membranes moist Neck: non-tender, supple Respiratory/Chest: chest wall non-tender, no accessory muscle use, decreased breath sounds , some scattered rhonchi Cardiovascular/Chest: normal rate, regular rhythm Abdomen: normal bowel sounds, non tender, soft Extremities: no calf tenderness, normal capillary refill, no edema Skin Exam: normal pigmentation, warm/dry Neurologic: awake, responsive, sleepy, no gross focal Musculoskeletal: normal muscle bulk Neurologic/Psychiatric: other - very drowsy but arousable, no gross focal Microbiology Date/Time Source Procedure Growth Status 03/22/20 16:13 Rectum Received Laboratory Tests 03/22/20 14:10: White Blood Count 9.4, Red Blood Count 3.88L, Hemoglobin 10.0L, Hematocrit 34.2L , Mean Corpuscular Volume 88, Mean Corpuscular Hemoglobin 25.8L, Mean Corpuscular Hemoglobin Concent 29.2L, Red Cell Distribution Width 21.6H, Platelet Count 268, Mean Platelet Volume 5.7L, Neutrophils (%) (Auto) 69.9, Lymphocytes (%) (Auto) 8.9L, Monocytes (%) (Auto) 11.4H, Eosinophils (%) (Auto) 9.1H, Basophils (%) (Auto) 0.7, Sodium Level 142, Potassium Level 3.8, Chloride Level 99, Carbon Dioxide Level > 45*H, Blood Urea Nitrogen 17, Creatinine 1.1, Estimat Glomerular Filtration Rate > 60, Glucose Level 85, Calcium Level 7.9L, Total Bilirubin 0.3, Aspartate Amino Transf (AST/SGOT) 26, Alanine Aminotransferase (ALT/SGPT) 23, Alkaline Phosphatase 68, Creatine Kinase MB 4.4H , Pro-B-Type Natriuretic Peptide 507H, Total Protein 6.8, Albumin 2.8L, Globulin 4.0, Albumin/Globulin Ratio 0.7L 03/22/20 15:24: Urine Opiates Screen PositiveH, Urine Barbiturates Screen Negative, Phencyclidine (PCP) Screen Negative, Urine Amphetamines Screen Negative, Urine Benzodiazepines Screen Negative, Urine Cocaine Screen PositiveH, Urine Marijuana (THC) Screen PositiveH 03/22/20 18:10: Arterial Blood pH 7.219*L, Arterial Blood Partial Pressure CO2 120.9*H, Arterial Blood Partial Pressure O2 76.3, Arterial Blood HCO3 48.3*H, Arterial Blood Oxygen Saturation 92.3L, Arterial Blood Base Excess 16.2*H, Rupert Test Positive 03/23/20 07:00: White Blood Count 7.2, Red Blood Count 3.71L, Hemoglobin 9.6L, Hematocrit 32.8L , Mean Corpuscular Volume 89, Mean Corpuscular Hemoglobin 25.9L, Mean Corpuscular Hemoglobin Concent 29.2L, Red Cell Distribution Width 21.8H, Platelet Count 246, Mean Platelet Volume 6.5, Neutrophils (%) (Auto) 63.5, Lymphocytes (%) (Auto) 14.3L, Monocytes (%) (Auto) 13.1H, Eosinophils (%) (Auto ) 8.0H, Basophils (%) (Auto) 1.0, Sodium Level 140, Potassium Level 3.9, Chloride Level 100, Carbon Dioxide Level > 45*H, Blood Urea Nitrogen 12, Creatinine 0.9, Estimat Glomerular Filtration Rate > 60, Glucose Level 65L, Calcium Level 8.1L, D-Dimer 0.82H, C-Reactive Protein, Quantitative 1.1H, Triglycerides Level 46, Cholesterol Level 94, LDL Cholesterol 37, HDL Cholesterol 47, Cholesterol/HDL Ratio 2.0L, Thyroid Stimulating Hormone (TSH) 0.516 Current Medications Medications (Trade) Dose Ordered Sig/Narcisa Route PRN Reason Start Time Stop Time Status Last Admin Dose Admin Acetaminophen (Tylenol) 650 mg Q4H PRN ORAL Mild Pain (Pain Scale 1-3) 03/22/20 15:45 04/21/20 15:44 Albuterol Sulfate (Proventil MDI) 2 puff Q4H PRN INH Shortness of Breath 03/22/20 15:45 06/20/20 15:44 Amlodipine Besylate (Norvasc) 10 mg DAILY ORAL 03/23/20 09:00 04/22/20 08:59 Aspirin (ASA) 81 mg DAILY ORAL 03/23/20 09:00 05/07/20 08:59 Atorvastatin Calcium (Lipitor) 10 mg BEDTIME ORAL 03/22/20 21:00 06/20/20 20:59 03/22/20 20:56 Ceftriaxone Sodium 1 gm/ Sodium Chloride 55 ml @ 110 mls/hr Q24H IVPB 03/22/20 17:00 03/29/20 16:59 03/22/20 16:46 Dextrose (Dextrose 50%) 25 ml Q30M PRN IV Hypoglycemia 03/22/20 15:45 06/20/20 15:44 Dextrose (Dextrose 50%) 50 ml Q30M PRN IV Hypoglycemia 03/22/20 15:45 06/20/20 15:44 Dextrose/Sodium Chloride 1,000 ml @ 50 mls/hr DAILY IV 03/22/20 15:45 04/21/20 15:44 03/23/20 06:58 Docusate Sodium (Colace) 100 mg EVERY 12 HOURS ORAL 03/22/20 21:00 04/21/20 20:59 Enoxaparin Sodium (Lovenox) 40 mg Q24H SUBQ 03/22/20 17:00 06/20/20 16:59 03/22/20 16:47 Magnesium Hydroxide (Mom) 30 ml HSPRN PRN ORAL Constipation 03/22/20 21:00 04/21/20 20:59 Ondansetron HCl (Zofran) 4 mg Q6H PRN IVP Nausea & Vomiting 03/22/20 15:45 04/21/20 15:44 Polyethylene Glycol (Miralax) 17 gm DAILYPRN PRN ORAL Constipation 03/22/20 21:15 04/21/20 15:44 Sildenafil Citrate (Revatio) 20 mg BID ORAL 03/22/20 20:00 06/20/20 19:59 03/22/20 20:01 Tamsulosin HCl (Flomax) 0.4 mg BID ORAL 03/22/20 18:00 04/21/20 17:59 03/22/20 19:15 Clemente Christiansen MD 03/23/20 1448: Assessment/Plan Assessment/Plan Patient seen and examined with RENTAL CAR DELIVERER, agree with A&P outlined above as it reflects our joint deliberations. SM40 IV BID and taper Start Advair/Spiriva (sub for Trelegy) Daliresp not on formulary Unclear when Sildenafil started but will continue for now HFA until covid ruled out then HHN Start nocturnal NIPPV once able DVT Px Subjective Allergies: Coded Allergies: No Known Allergies (Unverified , 08/06/15) Rubina Rhoades NP Mar 23, 2020 09:03 Clemente Christiansen MD Mar 23, 2020 14:48
[2020-03-23] MEDS: Solu-MEDROL 40mg Inj IVP SCH ×2 (09:15→21:29)
[2020-03-23 12:00] VITALS: BP 115/59
--- NOTE | 2020-03-23 12:33 | NUR ---
NURSE NOTES: Left a voicemail to Dr Christiansen's office to report stat ABG results. Awaiting for callback.
--- NOTE | 2020-03-23 12:55 | NUR ---
NURSE NOTES:WOUND CARE NOTES:Pt presented on admission with multiple pressure injuries. DTPI apex of sacrum (L)2.1cm x (W)1.5cm. Base of wound is indurated and purple with surrounding hyperpigmentation and scattered linear area of pink epithelial. Periwound skin tone is darker without erythema,induration or fluctuance. DTPI L heel(L)4cm x (W)4.5cm. Base of injury is maroon and fluctuant. Tender when minimally palpated. Xerosis skin periwound and plantar L foot. DTPI R heel (L)3cm x (W)5.5cm. Base of injury is maroon and fluctuant with delineated red margins.Tender when minimally palpated. Xerosis skin periwound and plantar R foot. Tx.Plan: Apply Moisture Barrier Paste to Sacrum. Cover with Optifoam drsg. Change every 3 days and prn. Apply Cavilon Skin BArrier to Both Heels. Copver each heel with Optifoam drsg. Changee very 7 days and prn. Reposition at least every 2hours or as tolerated. Off-load heels with PIllow. APM/CARLOS Mattress overlay.
--- NOTE | 2020-03-23 13:36 | NUR ---
CASE MANAGEMENT:REVIEW 74 YR OLD MALE [facility] CC: OVERDOSE PMH: STAGE IV LUNG CANCER. CHRONIC PAIN SI: DRUG OVERDOSE 98.0 102 20 98/52 98% ON 15L NON REBREATHER PH-7.21 PCO2+120.9 HCO3+48.3 CA-7.9 URINE(+) COCAINE AND THC IS: IV NARCAN 1L NS BOLUS CHEST XRAY : TO TELEMETRY UNIT DCP: HOME
--- NOTE | 2020-03-23 14:30 | NUR ---
NURSE NOTES: Pt's called and stated that she asked an [employer] cl[employer] driver to deliver the pt's dentures. Per , the [employer] clark driver left it on security. Called security and emergency front end wheel loader operator, none of them received any dentures. Called the to ask her if she can track the clark driver that delivered the dentures. No dentures received in the hospital.
[2020-03-23 16:00] VITALS: BP 116/70
[2020-03-23] MEDS: Wixela 250/50 Inhaler - 60 dose INH SCH (17:54)
[2020-03-23] MEDS: cefTRIAXone 1 GM in NS 55 ML IVPB SCH (17:55)
[2020-03-23] MEDS: Enoxaparin 40mg Inj SUBQ SCH (17:55)
--- NOTE | 2020-03-23 19:49 | NUR ---
HAND-OFF: Report given to HILLARY Jett. Pt in stable condition, endorsed plan of care.
[2020-03-23 20:00] VITALS: BP 120/63
--- NOTE | 2020-03-23 21:22 | General Progress Note ---
Assessment/Plan Assessment/Plan: encephalopathy resolved metastitic lung cancer on immunotherapy polystubstance abuse smoker contnues to smoke htn resume home meds methadone pulmonary hygine empic abx started on steroids awaing covid test bp stable dvt and ulcer rpohylaxis ambulate Subjective Allergies: Coded Allergies: No Known Allergies (Unverified , 08/06/15) Subjective feels better still some dyspnea cough awake alert Objective Last 24 Hour Vital Signs Date Time Temp Pulse Resp B/P (MAP) Pulse Ox O2 Delivery O2 Flow Rate FiO2 03/23/20 16:25 67 03/23/20 16:00 97.7 77 20 116/70 (85) 91 03/23/20 16:00 14.0 03/23/20 12:30 14.0 03/23/20 12:00 97.9 78 20 115/59 (77) 90 03/23/20 10:57 74 03/23/20 09:03 75 133/55 03/23/20 09:00 Nasal Cannula 4.0 03/23/20 08:01 72 03/23/20 08:00 4.0 03/23/20 08:00 97.3 75 20 133/55 (81) 94 03/23/20 04:00 65 03/23/20 04:00 98.2 69 17 104/61 (75) 94 03/23/20 01:46 Nasal Cannula 4.0 03/23/20 00:00 4.0 03/23/20 00:00 97.8 95 19 109/53 (71) 91 03/22/20 23:27 95 03/22/20 23:00 98.1 79 18 121/68 99 Nasal Cannula 4.0 98 03/22/20 22:00 79 18 121/68 99 Nasal Cannula 4.0 98 Intake and Output 03/22/20 03/23/20 19:00 07:00 Intake Total 0 ml 150 ml Output Total 290 ml Balance 0 ml -140 ml Intake Oral 0 ml 150 ml Output Urine Total 290 ml # Voids 1 # Bowel Movements 1 Laboratory Tests 03/23/20 07:00: White Blood Count 7.2, Red Blood Count 3.71L, Hemoglobin 9.6L, Hematocrit 32.8L , Mean Corpuscular Volume 89, Mean Corpuscular Hemoglobin 25.9L, Mean Corpuscular Hemoglobin Concent 29.2L, Red Cell Distribution Width 21.8H, Platelet Count 246, Mean Platelet Volume 6.5, Neutrophils (%) (Auto) 63.5, Lymphocytes (%) (Auto) 14.3L, Monocytes (%) (Auto) 13.1H, Eosinophils (%) (Auto ) 8.0H, Basophils (%) (Auto) 1.0, D-Dimer 0.82H, Sodium Level 140, Potassium Level 3.9, Chloride Level 100, Carbon Dioxide Level > 45*H, Blood Urea Nitrogen 12, Creatinine 0.9, Estimat Glomerular Filtration Rate > 60, Glucose Level 65L, Calcium Level 8.1L, C-Reactive Protein, Quantitative 1.1H, Triglycerides Level 46, Cholesterol Level 94, LDL Cholesterol 37, HDL Cholesterol 47, Cholesterol/ HDL Ratio 2.0L, Thyroid Stimulating Hormone (TSH) 0.516 03/23/20 11:55: Arterial Blood pH 7.362, Arterial Blood Partial Pressure CO2 76.6*H, Arterial Blood Partial Pressure O2 52.1L, Arterial Blood HCO3 42.5*H, Arterial Blood Oxygen Saturation 85.4*L, Arterial Blood Base Excess 14.2*H, Rupert Test Positive Height (Feet): 5 Height (Inches): 10.00 Weight (Pounds): 150 General Appearance: WD/WN, no apparent distress Cardiovascular: normal rate Respiratory/Chest: decreased breath sounds Abdomen: soft Edema: no edema noted Arm (L), no edema noted Arm (R), no edema noted Leg (L), no edema noted Leg (R), no edema noted Pedal (L), no edema noted Pedal (R), no edema noted Generalized Farhat Welsh MD Mar 23, 2020 21:22
[2020-03-24] VITALS: BP 122/69
--- NOTE | 2020-03-24 02:14 | NUR ---
NURSE NOTES: Received patient report from HILLARY Becerra. Patient AO x4. Patient shows no sign of distress or pain at the time. Portacath on right side of chest intact. Patient with venturi mask on at 14L. Bed in the lowest position, call light within reach, side rails up x 2, and bed brakes on.
[2020-03-24 04:00] VITALS: BP 130/64
--- NOTE | 2020-03-24 07:21 | NUR ---
HAND-OFF: Report given to HILLARY Becerra. Patient shows no signs of distress at this time. Endorsed plan of care.
[2020-03-24 07:29] LABS: HEMATOCRIT 32.1 % (42.0-52.0); HEMOGLOBIN 9.6 G/DL (14.2-18.0); MEAN CORPUSCULAR VOLUME 87 FL (80-99); PLATELET COUNT 246 K/UL (150-450); RED BLOOD COUNT 3.71 M/UL (4.70-6.10); RED CELL DISTRIBUTION WIDTH 21.2 % (11.6-14.8); WHITE BLOOD COUNT 7.4 K/UL (4.8-10.8)
--- NOTE | 2020-03-24 07:50 | NUR ---
NURSE NOTES: Received report from HILLARY Jett. Observed pt sleeping, no s/sx of acute distress. Pt on 14L venturi mask. IVF running at goal. Bed on lowest position, call light within reach. Will continue plan of care.
[2020-03-24 08:00] VITALS: BP 134/68
[2020-03-24 08:52] LABS: ALANINE AMINOTRANSFERASE 20 U/L (12-78); ALBUMIN 2.4 G/DL (3.4-5.0); ALBUMIN/GLOBULIN RATIO 0.6 (1.0-2.7); ALKALINE PHOSPHATASE 58 U/L (46-116); ANION GAP 0 mmol/L (5-15); ASPARTATE AMINO TRANSFERASE 21 U/L (15-37); BILIRUBIN,TOTAL 0.2 MG/DL (0.2-1.0); BLOOD UREA NITROGEN 12 mg/dL (7-18); CALCIUM 8.1 MG/DL (8.5-10.1); CHLORIDE 100 MMOL/L (98-107); CREATININE 0.9 MG/DL (0.55-1.30); POTASSIUM 4.4 MMOL/L (3.5-5.1); SODIUM 141 MMOL/L (136-145)
[2020-03-24 08:55] LABS: CARBON DIOXIDE 41 MMOL/L (21-32)
--- NOTE | 2020-03-24 08:58 | NUR ---
RD ASSESSMENT & RECOMMENDATIONS SEE CARE ACTIVITY FOR COMPLETE ASSESSMENT DAILY ESTIMATED NEEDS: Needs based on CA/ 68.5kg 25-30 kcals/kg 3193-6978 total kcals 1-1.5 g protein/kg 68-102 g total protein 25-30 mL/kg 4261-5993 total fluid mLs NUTRITION DIAGNOSIS: Increased kcal/prot intake needs R/T catabolic dx, wound healing as evidenced by dx of metastatic lung CA, on immunotherapy, admitted w/ DTPI wounds @ sacrum and BL heels. CURRENT DIET:CARDIAC, pureed moist PO DIET RECOMMENDATIONS: Liberalized regular diet to maintain good PO intake/ texture as tolerated ADDITIONAL RECOMMENDATIONS: * Standing scale wt as able for accurate CBW * Monitor for continued good PO intake * Ensure Enlive once daily to ensure pt meets increased kcal/prot needs (additional 350kcal/20g prot) * Snacks BID in b/w meals as tolerated * Monitor BGs closely while on Solumedrol * Wound healing: add MVI x 1, Vit C 250mg QD, Scottie BID
[2020-03-24] MEDS: Wixela 250/50 Inhaler - 60 dose INH SCH ×2 (09:00→18:16)
--- NOTE | 2020-03-24 09:00 | Pulmonology Progress Note ---
Rubina Rhoades INJECTION WAX MOLDER 03/24/20 0900: Assessment/Plan Assessment/Plan ASSESSMENT Acute toxic encephalopathy 2 to methadone overdose/ and probably cocaine intoxication - resolved Non-small cell lung carcinoma/adenocarcinoma st 4, on immunotherapy Chronic hypoxemic and hypercapnic respiratory failure ( O2 dependent at home) COPD, possible exacerbation Multiple lower lobe predominantly central lobular nodular opacities, suggestive of bronchiolitis ( infectious vs inflammatory)-recurrent with tree in bud nodularity Tobacco abuse Hx of Pseudomonas PNA History of positive Quantiferon gold and negative AFB Hepatitis B Polysubstance abuse : heroin, cocaine HTN Anemia Cachexia, probably protein calore malnutrition PLAN OF CARE tele isolation SARS-CoV-2 by PCR ( given severe immunocompromised status) pending gentle IV hydration, cardiac diet O2 titrate to keep sat above 90% unable to start BiPAP until CoVID result back CRP 1.1 continue Solumedrol 40 mg IV bid and taper down as permitted add Advair and Spiriva with MDI until COVID result available Proventil MDI prn until COVID result available and can initiate HHN fup ABG - noted, hypoxic but CO2 down , started on VM continue empiric abx, for possible PNA fup with CXR labs pending for this am resume home meds dietary eval re protein supplements certified addiction counselor on smoking cessation and abstinence from illicit street drugs case discussed and evaluated by supervising physician Subjective Allergies: Coded Allergies: No Known Allergies (Unverified , 08/06/15) Subjective awake and responsive on VM no fevers, no leukocytosis COVID 19 by PCR pending on isolation labs pending for this am Objective Last 24 Hour Vital Signs Date Time Temp Pulse Resp B/P (MAP) Pulse Ox O2 Delivery O2 Flow Rate FiO2 03/24/20 04:00 14.0 03/24/20 04:00 97.6 59 18 130/64 (86) 91 03/24/20 04:00 58 03/24/20 00:00 64 03/24/20 00:00 14.0 03/24/20 00:00 97.6 82 18 122/69 (86) 91 03/23/20 21:00 Venturi Mask 14.0 03/23/20 20:00 14.0 03/23/20 20:00 97.9 81 17 120/63 (82) 90 03/23/20 16:25 67 03/23/20 16:00 97.7 77 20 116/70 (85) 91 03/23/20 16:00 14.0 03/23/20 12:30 14.0 03/23/20 12:00 97.9 78 20 115/59 (77) 90 03/23/20 10:57 74 03/23/20 09:03 75 133/55 03/23/20 09:00 Nasal Cannula 4.0 Intake and Output 03/23/20 03/24/20 19:00 07:00 Intake Total 480 ml 300 ml Output Total 890 ml Balance 480 ml -590 ml Intake Oral 480 ml 300 ml Output Urine Total 890 ml # Voids 3 4 Objective General Appearance: cachectic AA male awake and responsive Lines, tubes and drains: peripheral HEENT: normocephalic, atraumatic, anicteric, mucous membranes moist, VM on Neck: non-tender, supple Respiratory/Chest: chest wall non-tender, no accessory muscle use, decreased breath sounds , some scattered rhonchi Cardiovascular/Chest: normal rate, regular rhythm Abdomen: normal bowel sounds, non tender, soft Extremities: no calf tenderness, normal capillary refill, no edema Skin Exam: normal pigmentation, warm/dry Neurologic: awake, responsive, sleepy, no gross focal Musculoskeletal: normal muscle bulk Neurologic/Psychiatric: other - very drowsy but arousable, no gross focal Microbiology Date/Time Source Procedure Growth Status 03/22/20 16:13 Nasal Nares MRSA Culture - Final NO METHICILLIN RESISTANT STAPH AUREUS... Complete 03/22/20 16:13 Rectum - Final NO CARBAPENEM-RESISTANT ENTEROBACTERI... Complete 03/22/20 16:13 Rectum VRE Culture - Final NO VANCOMYCIN RESISTANT ENTEROCOCCUS ... Complete Laboratory Tests 03/23/20 11:55: Arterial Blood pH 7.362, Arterial Blood Partial Pressure CO2 76.6*H, Arterial Blood Partial Pressure O2 52.1L, Arterial Blood HCO3 42.5*H, Arterial Blood Oxygen Saturation 85.4*L, Arterial Blood Base Excess 14.2*H, Rupert Test Positive 03/24/20 04:00: Sodium Level 141, Potassium Level 4.4, Chloride Level 100, Carbon Dioxide Level 41*H, Anion Gap 0L, Blood Urea Nitrogen 12, Creatinine 0.9, Estimat Glomerular Filtration Rate > 60, Glucose Level 126H, Calcium Level 8.1L, Total Bilirubin 0.2, Aspartate Amino Transf (AST/SGOT) 21, Alanine Aminotransferase (ALT/SGPT) 20, Alkaline Phosphatase 58, Total Protein 6.1L, Albumin 2.4L, Globulin 3.7, Albumin/Globulin Ratio 0.6L 03/24/20 07:00: White Blood Count 7.4, Red Blood Count 3.71L, Hemoglobin 9.6L, Hematocrit 32.1L , Mean Corpuscular Volume 87, Mean Corpuscular Hemoglobin 25.9L, Mean Corpuscular Hemoglobin Concent 29.9L, Red Cell Distribution Width 21.2H, Platelet Count 246, Mean Platelet Volume 6.0L, Neutrophils (%) (Auto) , Lymphocytes (%) (Auto) , Monocytes (%) (Auto) , Eosinophils (%) (Auto) , Basophils (%) (Auto) , Neutrophils % (Manual) [Pending], Lymphocytes % (Manual) [Pending], Platelet Estimate [Pending], Platelet Morphology [Pending] Current Medications Medications (Trade) Dose Ordered Sig/Narcisa Route PRN Reason Start Time Stop Time Status Last Admin Dose Admin Acetaminophen (Tylenol) 650 mg Q4H PRN ORAL Mild Pain (Pain Scale 1-3) 03/22/20 15:45 04/21/20 15:44 Albuterol Sulfate (Proventil MDI) 2 puff Q4H PRN INH Shortness of Breath 03/22/20 15:45 06/20/20 15:44 Amlodipine Besylate (Norvasc) 10 mg DAILY ORAL 03/23/20 09:00 04/22/20 08:59 03/23/20 09:03 Aspirin (ASA) 81 mg DAILY ORAL 03/23/20 09:00 05/07/20 08:59 03/23/20 09:03 Atorvastatin Calcium (Lipitor) 10 mg BEDTIME ORAL 03/22/20 21:00 06/20/20 20:59 03/23/20 21:29 Ceftriaxone Sodium 1 gm/ Sodium Chloride 55 ml @ 110 mls/hr Q24H IVPB 03/22/20 17:00 03/29/20 16:59 03/23/20 17:55 Dextrose (Dextrose 50%) 25 ml Q30M PRN IV Hypoglycemia 03/22/20 15:45 06/20/20 15:44 Dextrose (Dextrose 50%) 50 ml Q30M PRN IV Hypoglycemia 03/22/20 15:45 06/20/20 15:44 Dextrose/Sodium Chloride 1,000 ml @ 50 mls/hr DAILY IV 03/22/20 15:45 04/21/20 15:44 03/23/20 06:58 Docusate Sodium (Colace) 100 mg EVERY 12 HOURS ORAL 03/22/20 21:00 04/21/20 20:59 03/23/20 21:29 Enoxaparin Sodium (Lovenox) 40 mg Q24H SUBQ 03/22/20 17:00 06/20/20 16:59 03/23/20 17:55 Magnesium Hydroxide (Mom) 30 ml HSPRN PRN ORAL Constipation 03/22/20 21:00 04/21/20 20:59 Methadone HCl (Methadone HCl) 60 mg DAILY ORAL 03/24/20 09:00 03/31/20 08:59 UNV Methylprednisolone Sodium Succinate (Solu-MEDROL) 40 mg Q12HR IVP 03/23/20 10:00 06/21/20 09:59 03/23/20 21:29 Ondansetron HCl (Zofran) 4 mg Q6H PRN IVP Nausea & Vomiting 03/22/20 15:45 04/21/20 15:44 Polyethylene Glycol (Miralax) 17 gm DAILYPRN PRN ORAL Constipation 03/22/20 21:15 04/21/20 15:44 Salmeterol Xinafoate/ Fluticasone (Advair 250/50 Diskus) 1 puffs BID INH 03/23/20 18:00 06/21/20 17:59 03/23/20 17:54 Sildenafil Citrate (Revatio) 20 mg BID ORAL 03/22/20 20:00 06/20/20 19:59 03/23/20 17:54 Tamsulosin HCl (Flomax) 0.4 mg BID ORAL 03/22/20 18:00 04/21/20 17:59 03/23/20 17:54 Tiotropium Wood (Spiriva Inhaler) 1 puff TWICE A DAY INH 03/23/20 18:00 04/22/20 17:59 03/23/20 17:54 Clemente Christiansen MD 03/25/20 1146: Assessment/Plan Assessment/Plan Patient seen and examined with INJECTION WAX MOLDER, agree with above A&P as it reflects our joint deliberations. Subjective Allergies: Coded Allergies: No Known Allergies (Unverified , 08/06/15) Rubina Rhoades NP March 24, 2020 09:00 Clemente Christiansen MD March 25, 2020 11:46
[2020-03-24] MEDS: Docusate 100mg cap ORAL SCH ×2 (09:30→20:46)
[2020-03-24] MEDS: Tamsulosin 0.4mg cap ORAL SCH ×2 (09:30→17:52)
[2020-03-24] MEDS: Solu-MEDROL 40mg Inj IVP SCH ×2 (09:30→21:19)
[2020-03-24] MEDS: Revatio 20mg tab ORAL SCH ×2 (09:30→17:52)
[2020-03-24] MEDS: Aspirin Baby 81mg ORAL SCH (09:30)
[2020-03-24] MEDS: D5 1/2NS 1,000 ML IV SCH (09:31)
--- NOTE | 2020-03-24 10:29 | NUR ---
NURSE NOTES: Left a message to Dr Welsh's office to get an order for wound consult, per wound nurse.
--- NOTE | 2020-03-24 11:16 | NUR ---
CASE MANAGEMENT:REVIEW 03/24/20 SI: ENCEPHALOPATHY. POLYSUBSTANCE ABUSE METASTATIC LUNG CANCER ON IMMUNOTHERAPY 97.4 63 18 134/68 93% ON 14L VENTURI MASK H/H-9.6/32.1 CO2+42 IS: METHADONE PO QD SPIRIVA INH BID ADVAIR DISC INH BID IV SOLUMEDROL Q12HRS IV ROCEPHIN Q24 IVF@50/HR NORVASC PO QD ASA PO QD LOVENOX SQ Q24 REVATIO PO BID : TELEMETRY STATUS DCP: FROM HOME PLAN: PHYSICAL THERAPY EVAL....AMBULATE AWAIT COVID 19 RESULTS TITRATE OXYGEN
--- NOTE | 2020-03-24 11:25 | NUR ---
DISCHARGE PLAN PLAN IS FOR HOME ONCE STABLE AND CONTINUE [facility] NOT READY FOR DISCHARGE TODAY D/T THE FOLLOWING : PHYSICAL THERAPY EVAL PENDING....AMBULATE AWAIT COVID 19 RESULTS.....ISOLATION TITRATE OXYGEN SOCIAL SERVICE CONSULT PENDING FOR POLYSUBSTANCE USE ~ METHADONE, COCAINE AND THC
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
[2020-03-24 12:00] VITALS: BP 140/78
--- NOTE | 2020-03-24 14:12 | NUR ---
P.T Note: P.T evaluation completed. Based on P.T evaluation, pt is independent in all basic ADL/functional mobilities and gait/locomotion. Pt is currently functioning at baseline therefore skilled P.T service is not essential at this time. Educated pt re: importance of OOB activities VS bedrest unless otherwise ordered or indicated. Pt verbalize understanding. DC P.T services. Thank you for this referral.
[2020-03-24 16:00] VITALS: BP 129/76
[2020-03-24] MEDS: Enoxaparin 40mg Inj SUBQ SCH (17:53)
[2020-03-24] MEDS: cefTRIAXone 1 GM in NS 55 ML IVPB SCH (17:54)
--- NOTE | 2020-03-24 19:23 | NUR ---
HAND-OFF: Report given to FUENTES Beatty. Pt in stable condition, endorsed plan of care.
[2020-03-24 20:00] VITALS: BP 121/62
--- NOTE | 2020-03-24 20:00 | NUR ---
NURSE NOTES: RECEIVED PATIENT LYING IN BED, AWAKE, ALERT/ORIENTED X4, VERBALLY RESPONSIVE, DENIES PAIN, NO SIGNS AND SYMPTOMS OF ACUTE CARDIO RESPIRATORY DISTRESS/SHORTNESS OF BREATH, DENIES CHEST PAIN, NON PRODUCTIVE COUGH, NO PERIPHERAL EDEMA NOTED, CONTINUE ON MASS COMMUNICATIONS INSTRUCTOR. NO REPORT OF GI DISCOMFORT, DENIES N/V/D, CONTINENT OF B/B, BEDSIDE COMMODE/URINAL. ABLE TO REPOSITION SELF AD ABDULKADIR. SIDE RAILS UP X2, BED IN LOWEST POSITION FOR SAFE, ENCOURAGED PATIENT TO UTILIZE CALL LIGHT FOR ASSISTANCE, VERBALIZED UNDERSTANDING. CONTINUE WITH CURRENT PLAN OF CARE. NAD.
--- NOTE | 2020-03-24 21:24 | General Progress Note ---
Assessment/Plan Assessment/Plan: encephalopathy resolved metastitic lung cancer on immunotherapy polystubstance abuse smoker contnues to smoke htn resume home meds methadone resumed pulmonary hygine empic abx started on steroids awaitng covid test bp stable dvt and ulcer rpohylaxis ambulate dw patient again to stop smoking stop using drugs Subjective Allergies: Coded Allergies: No Known Allergies (Unverified , 08/06/15) Subjective feels better still some dyspnea cough awake alert still awaiting covid Objective Last 24 Hour Vital Signs Date Time Temp Pulse Resp B/P (MAP) Pulse Ox O2 Delivery O2 Flow Rate FiO2 03/24/20 20:39 Venturi Mask 14.0 03/24/20 16:04 67 03/24/20 16:00 14.0 03/24/20 16:00 98.4 97 20 129/76 (93) 95 03/24/20 12:00 98.0 68 18 140/78 (98) 95 03/24/20 12:00 14.0 03/24/20 11:46 65 03/24/20 09:30 63 134/68 03/24/20 09:09 72 03/24/20 09:00 Venturi Mask 14.0 03/24/20 08:00 14.0 03/24/20 08:00 97.4 63 18 134/68 (90) 93 03/24/20 04:00 14.0 03/24/20 04:00 97.6 59 18 130/64 (86) 91 03/24/20 04:00 58 03/24/20 00:00 64 03/24/20 00:00 14.0 03/24/20 00:00 97.6 82 18 122/69 (86) 91 Intake and Output 03/23/20 03/24/20 19:00 07:00 Intake Total 480 ml 300 ml Output Total 890 ml Balance 480 ml -590 ml Intake Oral 480 ml 300 ml Output Urine Total 890 ml # Voids 3 4 Laboratory Tests 03/24/20 04:00: Sodium Level 141, Potassium Level 4.4, Chloride Level 100, Carbon Dioxide Level 41*H, Anion Gap 0L, Blood Urea Nitrogen 12, Creatinine 0.9, Estimat Glomerular Filtration Rate > 60, Glucose Level 126H, Calcium Level 8.1L, Total Bilirubin 0.2, Aspartate Amino Transf (AST/SGOT) 21, Alanine Aminotransferase (ALT/SGPT) 20, Alkaline Phosphatase 58, Total Protein 6.1L, Albumin 2.4L, Globulin 3.7, Albumin/Globulin Ratio 0.6L 03/24/20 07:00: White Blood Count 7.4, Red Blood Count 3.71L, Hemoglobin 9.6L, Hematocrit 32.1L , Mean Corpuscular Volume 87, Mean Corpuscular Hemoglobin 25.9L, Mean Corpuscular Hemoglobin Concent 29.9L, Red Cell Distribution Width 21.2H, Platelet Count 246, Mean Platelet Volume 6.0L, Neutrophils (%) (Auto) , Lymphocytes (%) (Auto) , Monocytes (%) (Auto) , Eosinophils (%) (Auto) , Basophils (%) (Auto) , Differential Total Cells Counted 100, Neutrophils % ( Manual) 94H, Lymphocytes % (Manual) 4L, Monocytes % (Manual) 2, Eosinophils % ( Manual) 0, Basophils % (Manual) 0, Band Neutrophils 0, Platelet Estimate Adequate, Platelet Morphology Normal, Hypochromasia 1+, Anisocytosis 2+ Height (Feet): 5 Height (Inches): 10.00 Weight (Pounds): 151 General Appearance: WD/WN, no apparent distress Neck: supple Cardiovascular: normal rate Respiratory/Chest: decreased breath sounds Abdomen: soft Farhat Welsh MD March 24, 2020 21:24
[2020-03-25] VITALS: BP 126/58
[2020-03-25 04:00] VITALS: BP 126/61
--- NOTE | 2020-03-25 06:39 | NUR ---
NURSE NOTES: RESTED WELL, NO SIGNIFICANT CHANGE OF CONDITION NOTED THROUGHOUT THE NIGHT. SAFETY MAINTAINED. NAD
[2020-03-25] MEDS: D5 1/2NS 1,000 ML IV SCH (07:08)
--- NOTE | 2020-03-25 07:30 | NUR ---
HAND-OFF: Report given to HILLARY WHITNEY.
[2020-03-25 07:37] LABS: ANION GAP 1 mmol/L (5-15); BLOOD UREA NITROGEN 13 mg/dL (7-18); CALCIUM 8.8 MG/DL (8.5-10.1); CARBON DIOXIDE 38 MMOL/L (21-32); CHLORIDE 98 MMOL/L (98-107); CREATININE 0.8 MG/DL (0.55-1.30); POTASSIUM 4.5 MMOL/L (3.5-5.1); SODIUM 137 MMOL/L (136-145)
[2020-03-25 08:00] VITALS: BP 142/72
[2020-03-25] MEDS ORDERED: Ascorbic Acid 500mg tab ORAL SCH (09:00)
[2020-03-25] MEDS: Revatio 20mg tab ORAL SCH (09:19)
[2020-03-25] MEDS: Docusate 100mg cap ORAL SCH (09:19)
[2020-03-25] MEDS: Aspirin Baby 81mg ORAL SCH (09:20)
[2020-03-25] MEDS: Tamsulosin 0.4mg cap ORAL SCH (09:20)
[2020-03-25] MEDS: Solu-MEDROL 40mg Inj IVP SCH (09:20)
[2020-03-25] MEDS: Wixela 250/50 Inhaler - 60 dose INH SCH (09:20)
--- NOTE | 2020-03-25 09:42 | Pulmonology Progress Note ---
Rubina Rhoades ALLERGY NURSE 03/25/20 0942: Assessment/Plan Assessment/Plan ASSESSMENT Acute toxic encephalopathy 2 to methadone overdose/ and probably cocaine intoxication - resolved Non-small cell lung carcinoma/adenocarcinoma st 4, on immunotherapy Chronic hypoxemic and hypercapnic respiratory failure ( O2 dependent at home) COPD, possible exacerbation Multiple lower lobe predominantly central lobular nodular opacities, suggestive of bronchiolitis ( infectious vs inflammatory)-recurrent with tree in bud nodularity Tobacco abuse Hx of Pseudomonas PNA History of positive Quantiferon gold and negative AFB Hepatitis B Polysubstance abuse : heroin, cocaine HTN Anemia Cachexia, probably protein calore malnutrition Multiple DTY, POA PLAN OF CARE tele isolation , stilla waiting for COVID result SARS-CoV-2 by PCR ( given severe immunocompromised status) pending gentle IV hydration, cardiac diet O2 titrate to keep sat above 90% unable to start BiPAP until CoVID result back CRP 1.1 CO2 down to 38 this am taper Solumedrol to 30 mg IV bid and taper down as permitted added Advair and Spiriva with MDI until COVID result available Proventil MDI prn until COVID result available and can initiate HHN fup ABG - noted, hypoxic but CO2 down , on VM continue empiric abx, for possible PNA fup with CXR home meds resumed, including Revatio protein supplements as per RD recs continue to vocational counselor on smoking cessation and abstinence from illicit street drugs addendum at 11:30 SARS-CoV-2 by PCR back non-detected off isoaltion wean to NC as tolerated if able and stable, probably can be dc home on oral prednisone with tapering ( will call pharmacy) case discussed and evaluated by supervising physician Subjective Allergies: Coded Allergies: No Known Allergies (Unverified , 08/06/15) Subjective awake and responsive on VM no fevers, no leukocytosis COVID 19 by PCR still pending on isolation CO2 down to 38 Objective Last 24 Hour Vital Signs Date Time Temp Pulse Resp B/P (MAP) Pulse Ox O2 Delivery O2 Flow Rate FiO2 03/25/20 09:23 59 142/72 03/25/20 04:00 59 03/25/20 04:00 14.0 03/25/20 04:00 97.7 71 18 126/61 (82) 98 03/25/20 00:00 97.6 67 18 126/58 (80) 99 03/25/20 00:00 66 03/25/20 00:00 14.0 03/24/20 21:00 14.0 03/24/20 20:39 Venturi Mask 14.0 03/24/20 20:00 76 03/24/20 20:00 97.7 79 18 121/62 (81) 99 03/24/20 16:04 67 03/24/20 16:00 14.0 03/24/20 16:00 98.4 97 20 129/76 (93) 95 03/24/20 12:00 98.0 68 18 140/78 (98) 95 03/24/20 12:00 14.0 03/24/20 11:46 65 Intake and Output 03/24/20 03/25/20 19:00 07:00 Intake Total 720 ml 240 ml Output Total 1000 ml Balance 720 ml -760 ml Intake Oral 720 ml 240 ml Output Urine Total 1000 ml # Voids 5 Objective General Appearance: cachectic AA male awake and responsive Lines, tubes and drains: peripheral HEENT: normocephalic, atraumatic, anicteric, mucous membranes moist, VM on Neck: non-tender, supple Respiratory/Chest: chest wall non-tender, no accessory muscle use, decreased breath sounds , some scattered rhonchi Cardiovascular/Chest: normal rate, regular rhythm Abdomen: normal bowel sounds, non tender, soft Extremities: no calf tenderness, normal capillary refill, no edema Skin Exam: , warm/dry, multiple DTU POA Neurologic: awake, responsive, sleepy, no gross focal Musculoskeletal: normal muscle bulk Neurologic/Psychiatric: other - very drowsy but arousable, no gross focal Microbiology Date/Time Source Procedure Growth Status 03/22/20 16:13 Nasal Nares MRSA Culture - Final NO METHICILLIN RESISTANT STAPH AUREUS... Complete 03/22/20 16:01 Nasopharynx Coronavirus COVID-19 PCR (ANNEMARIE) - Final Complete 03/22/20 16:13 Rectum - Final NO CARBAPENEM-RESISTANT ENTEROBACTERI... Complete 03/22/20 16:13 Rectum VRE Culture - Final NO VANCOMYCIN RESISTANT ENTEROCOCCUS ... Complete Laboratory Tests 03/25/20 05:00: Sodium Level 137, Potassium Level 4.5, Chloride Level 98, Carbon Dioxide Level 38H, Anion Gap 1L, Blood Urea Nitrogen 13, Creatinine 0.8, Estimat Glomerular Filtration Rate > 60, Glucose Level 153H, Calcium Level 8.8 Current Medications Medications (Trade) Dose Ordered Sig/Narcisa Route PRN Reason Start Time Stop Time Status Last Admin Dose Admin Acetaminophen (Tylenol) 650 mg Q4H PRN ORAL Mild Pain (Pain Scale 1-3) 03/22/20 15:45 04/21/20 15:44 Albuterol Sulfate (Proventil MDI) 2 puff Q4H PRN INH Shortness of Breath 03/22/20 15:45 06/20/20 15:44 Amlodipine Besylate (Norvasc) 10 mg DAILY ORAL 03/23/20 09:00 04/22/20 08:59 03/25/20 09:23 Ascorbic Acid (Vitamin C) 250 mg DAILY ORAL 03/25/20 09:00 04/24/20 08:59 03/25/20 09:19 Aspirin (ASA) 81 mg DAILY ORAL 03/23/20 09:00 05/07/20 08:59 03/25/20 09:20 Atorvastatin Calcium (Lipitor) 10 mg BEDTIME ORAL 03/22/20 21:00 06/20/20 20:59 03/24/20 20:46 Ceftriaxone Sodium 1 gm/ Sodium Chloride 55 ml @ 110 mls/hr Q24H IVPB 03/22/20 17:00 03/29/20 16:59 03/24/20 17:54 Dextrose (Dextrose 50%) 25 ml Q30M PRN IV Hypoglycemia 03/22/20 15:45 06/20/20 15:44 Dextrose (Dextrose 50%) 50 ml Q30M PRN IV Hypoglycemia 03/22/20 15:45 06/20/20 15:44 Dextrose/Sodium Chloride 1,000 ml @ 50 mls/hr DAILY IV 03/22/20 15:45 04/21/20 15:44 03/25/20 07:08 Docusate Sodium (Colace) 100 mg EVERY 12 HOURS ORAL 03/22/20 21:00 04/21/20 20:59 03/25/20 09:19 Enoxaparin Sodium (Lovenox) 40 mg Q24H SUBQ 03/22/20 17:00 06/20/20 16:59 03/24/20 17:53 Magnesium Hydroxide (Mom) 30 ml HSPRN PRN ORAL Constipation 03/22/20 21:00 04/21/20 20:59 Methadone HCl (Methadone HCl) 60 mg DAILY ORAL 03/24/20 11:30 03/31/20 11:29 03/25/20 09:19 Methylprednisolone Sodium Succinate (Solu-MEDROL) 40 mg Q12HR IVP 03/23/20 10:00 06/21/20 09:59 03/25/20 09:20 Multivitamins (Multivitamins) 1 tab DAILY ORAL 03/25/20 09:00 04/24/20 08:59 03/25/20 09:19 Ondansetron HCl (Zofran) 4 mg Q6H PRN IVP Nausea & Vomiting 03/22/20 15:45 04/21/20 15:44 Polyethylene Glycol (Miralax) 17 gm DAILYPRN PRN ORAL Constipation 03/22/20 21:15 04/21/20 15:44 Salmeterol Xinafoate/ Fluticasone (Advair 250/50 Diskus) 1 puffs BID INH 03/23/20 18:00 06/21/20 17:59 03/25/20 09:20 Sildenafil Citrate (Revatio) 20 mg BID ORAL 03/22/20 20:00 06/20/20 19:59 03/25/20 09:19 Tamsulosin HCl (Flomax) 0.4 mg BID ORAL 03/22/20 18:00 04/21/20 17:59 03/25/20 09:20 Tiotropium Ione (Spiriva Inhaler) 1 puff TWICE A DAY INH 03/23/20 18:00 04/22/20 17:59 03/25/20 09:20 Clemente Christiansen MD 03/25/20 1147: Assessment/Plan Assessment/Plan Patient seen and examined with ALLERGY NURSE, agree with above A&P as it reflects our joint deliberations. Still on FM, will transition to NC. COVID neg, will change HFA back to HHN. If nnamdi NC later today will D/C home on Pred taper. F/ U with me in 2-3 weeks. D/W Dr. Welsh Subjective Allergies: Coded Allergies: No Known Allergies (Unverified , 08/06/15) Rubina Rhoades NP March 25, 2020 09:42 Clemente Christiansen MD March 25, 2020 11:47
--- NOTE | 2020-03-25 11:28 | Surgery Progress Note ---
Surgery Progress Note Subjective Symptoms: improved Additional Comments Patient seen and examined bedside. Improving. States he feels very well. No nausea vomiting fever chills. He states he found his bottom teeth and now can eat regular diet as he asked for pured before because he can find his teeth. Labs improving. Micro noted. Objective Last 24 Hour Vital Signs Date Time Temp Pulse Resp B/P (MAP) Pulse Ox O2 Delivery O2 Flow Rate FiO2 03/25/20 09:23 59 142/72 03/25/20 09:00 Venturi Mask 14.0 03/25/20 08:00 97.5 59 16 142/72 (95) 100 03/25/20 08:00 14.0 03/25/20 04:00 59 03/25/20 04:00 14.0 03/25/20 04:00 97.7 71 18 126/61 (82) 98 03/25/20 00:00 97.6 67 18 126/58 (80) 99 03/25/20 00:00 66 03/25/20 00:00 14.0 03/24/20 21:00 14.0 03/24/20 20:39 Venturi Mask 14.0 03/24/20 20:00 76 03/24/20 20:00 97.7 79 18 121/62 (81) 99 03/24/20 16:04 67 03/24/20 16:00 14.0 03/24/20 16:00 98.4 97 20 129/76 (93) 95 03/24/20 12:00 98.0 68 18 140/78 (98) 95 03/24/20 12:00 14.0 03/24/20 11:46 65 I&O Intake and Output 03/24/20 03/25/20 19:00 07:00 Intake Total 720 ml 240 ml Output Total 1000 ml Balance 720 ml -760 ml Intake Oral 720 ml 240 ml Output Urine Total 1000 ml # Voids 5 Cardiovascular: RSR Respiratory: decreased breath sounds Abdomen: soft, non-tender, present bowel sounds Extremities: no tenderness, no cyanosis Laboratory Tests Test 03/25/20 05:00 Sodium Level 137 MMOL/L (136-145) Potassium Level 4.5 MMOL/L (3.5-5.1) Chloride Level 98 MMOL/L (98-107) Carbon Dioxide Level 38 MMOL/L (21-32) H Anion Gap 1 mmol/L (5-15) L Blood Urea Nitrogen 13 mg/dL (7-18) Creatinine 0.8 MG/DL (0.55-1.30) Estimat Glomerular Filtration Rate > 60 mL/min (>60) Glucose Level 153 MG/DL (74-106) H Calcium Level 8.8 MG/DL (8.5-10.1) Plan Problems: (1) Deep tissue injury Assessment & Plan: Pt presented on admission with multiple pressure injuries. DTPI apex of sacrum (L)2.1cm x (W)1.5cm. Base of wound is indurated and purple with surrounding hyperpigmentation and scattered linear area of pink epithelial. Periwound skin tone is darker without erythema,induration or fluctuance. DTPI L heel(L)4cm x (W)4.5cm. Base of injury is maroon and fluctuant. Tender when minimally palpated. Xerosis skin periwound and plantar L foot. DTPI R heel (L)3cm x (W)5.5cm. Base of injury is maroon and fluctuant with delineated red margins.Tender when minimally palpated. Xerosis skin periwound and plantar R foot. Tx.Plan: Apply Moisture Barrier Paste to Sacrum. Cover with Optifoam drsg. Change every 3 days and prn. Apply Cavilon Skin BArrier to Both Heels. Copver each heel with Optifoam drsg. Changee very 7 days and prn. Reposition at least every 2hours or as tolerated. Off-load heels with PIllow. APM/CARLOS Mattress overlay. Nutritional optimization Will follow with recs Thank you for allowing me to participate in care (2) Malnutrition Assessment & Plan: DAILY ESTIMATED NEEDS: Needs based on CA/ 68.5kg 25-30 kcals/kg 4224-2562 total kcals 1-1.5 g protein/kg 68-102 g total protein 25-30 mL/kg 9753-9172 total fluid mLs NUTRITION DIAGNOSIS: Increased kcal/prot intake needs R/T catabolic dx, wound healing as evidenced by dx of metastatic lung CA, on immunotherapy, admitted w/ DTPI wounds @ sacrum and BL heels. CURRENT DIET:CARDIAC, pureed moist PO DIET RECOMMENDATIONS: Liberalized regular diet to maintain good PO intake/ texture as tolerated ADDITIONAL RECOMMENDATIONS: * Standing scale wt as able for accurate CBW * Monitor for continued good PO intake * Ensure Enlive once daily to ensure pt meets increased kcal/prot needs (additional 350kcal/20g prot) * Snacks BID in b/w meals as tolerated * Monitor BGs closely while on Solumedrol * Wound healing: add MVI x 1, Vit C 250mg QD, Scottie BID Sin Robbins March 25, 2020 11:28
[2020-03-25 12:00] VITALS: BP 139/64
[2020-03-25] MEDS ORDERED: Albuterol/Ipratropium 3ml neb HHN PRN (12:00)
[2020-03-25] MEDS ORDERED: Albuterol/Ipratropium 3ml neb HHN SCH (13:00)
--- NOTE | 2020-03-25 14:17 | NUR ---
NURSE NOTES: Reported to Dr Lozano that pt O2 sat in 2L NC is 97%.
--- NOTE | 2020-03-25 16:20 | NUR ---
NURSE NOTES: Pt left in stable condition, picked up by family member. IV and telemonitor removed, no bleeding noted. Belongings checked. DC and medications explained to pt. Verbalized understanding.
[2020-03-25] MEDS ORDERED: Solu-MEDROL 40mg Inj IVP SCH (21:00)
--- NOTE | 2020-03-26 11:59 | Discharge Summary ---
Discharge Summary Discharge Summary _ DATE OF ADMISSION: 03/22/2020 DATE OF DISCHARGE: 03/25/2020 DISCHARGED BY: Dr. Welsh REASON FOR ADMISSION: 74 years old male with past medical history of hypertension, COPD, chronic hypercapnic hypoxemic respiratory failure, non-small cell lung carcinoma/ adenocarcinoma, history of Pseudomonas l pneumonia, history of positive QuantiFERON Gold and negative AFB, extensive tobacco use, history of heroine and cocaine abuse, hepatitis B, presented to with methadone overdose. Patient was at his oncologist office and was noted to be sleepy and later unresponsive. Patient had pinpoint pupils. Paramedics were called. Patient first received Narcan in the field with some improvement in respiratory rate , and later received Narcan in the emergency department . Initially patient started on 100% nonrebreathing mask, but soon was able to be weaned to oxygen via nasal cannula. Mild tachycardia resolved , but patient remained tachypneic. No fevers. Chest x-ray demonstrated pulmonary vascular prominence , possible mild congestive changes/fluid overload. Questionable subtle developing infiltrate in the right midlung. Indwelling right chest wall Mediport noted. No pneumothorax, no pleural effusion. Initial ABG revealed acidosis with pH 7.22 , PCO2 120 and O2 sat 92% ( done on 5 L of oxygen via nasal cannula). Laboratory work-up revealed no leukocytosis, hemoglobin 10, hematocrit 34.2, platelet count 268, evidence of lymphopenia with lymphocyte 8.9. Chemistry showed CO2 above 45 , otherwise stable electrolytes and renal parameters. Stable LFT. Glucose 85. Albumin 2.8. ProBNP 507. Urine toxicology screen was positive for cocaine and marijuana. Patient subsequently admitted to telemetry floor for further management. CONSULTANTS: pulmonary Dr. Christiansen surgery Dr. Robbins [facility] COURSE: Patient admitted to telemetry floor. Patient was swabbed for COVID-19, given his immunocompromise status secondary to metastatic lung cancer. Patient initially was kept in isolation. Patient started on IV steroids with gradual tapering. Patient started on gentle IV hydration and empiric antibiotics. Supplemental oxygen provided and titrated to keep pulse oximetry above 90%. Patient started on inhalers Spiriva and Advair with MDI routinely and Proventil MDI as needed, Follow-up ABG revealed resolved acidosis, improved hypercapnia, but hypoxia. Patient upgraded to Ventimask to keep appropriate oxygen saturation. CO2 trended down to 38. Patient declined further ABG. Patient was able to be weaned to nasal cannula, Mental status was closely monitored. When patient became more awake , he started on cardiac diet. Home medication resumed. Patient was counseled on smoking cessation and abstinence from illicit street drugs. Protein supplements provided as per registered radiologic technologist recommendation. Patient declined follow-up chest x-ray. No fevers, no leukocytosis. SARS-CoV-2 by PCR came back not detected. CRP 1.1. Wound care provided as per surgeon recommendation for multiply deep tissue injury , present on admission. Hemoglobin and hematocrit were closely monitored with goal to keep hemoglobin above 7 ; remained at baseline. Prior to discharge hemoglobin 9.6, hematocrit 22.1. Patient was able to be weaned from Ventimask to nasal cannula. Pulse oximetry 98% on 2L O2 via NC prior to discharge. Patient clinically stabilized and was ready for discharge home on oral Prednisone with tapering schedule, prescription called to pharmacy. FINAL DIAGNOSES: Acute toxic encephalopathy secondary to methadone overdose and probably cocaine intoxication -resolved Non-small cell lung carcinoma/adenocarcinoma stage IV, on immunotherapy Chronic hypoxemic and hypercapnic respiratory failure ( O2 dependent at home) COPD with possible exacerbation Multiply lower lobes ,predominantly centrilobular nodular opacities ,suggestive of bronchiolitis, recurrent with tree-in-bud nodularity Tobacco abuse History of Pseudomonas pneumonia History of positive QuantiFERON Gold and negative AFB Hepatitis B Polysubstance abuse : heroine , cocaine Hypertension Anemia Cachexia , probably protein calorie malnutrition Multiply DTI present on admission DISCHARGE MEDICATIONS: See Medication Reconciliation list. DISCHARGE INSTRUCTIONS: Patient was discharged home. Outpatient follow up with primary care provider, grocery store courtesy clerk and oncologist. Rubina Rhoades NP March 26, 2020 11:59
== END 2020-03-25 16:22 | disposition home or self-care (01) | DRG 917 ==
LOC: EDBD 13:53 → EMR 14:19 → 2E 14:30 → EDBEDREQ 20:51 → 2E 22:23
DX: T40.3X1A Poisoning by methadone, accidental (unintentional), initial encounter (principal); G92 Toxic encephalopathy; J96.12 Chronic respiratory failure with hypercapnia; J96.11 Chronic respiratory failure with hypoxia; C34.90 Malignant neoplasm of unspecified part of unspecified bronchus or lung; J44.1 Chronic obstructive pulmonary disease with (acute) exacerbation; E46 Unspecified protein-calorie malnutrition; B19.10 Unspecified viral hepatitis B without hepatic coma; F17.200 Nicotine dependence, unspecified, uncomplicated; G89.29 Other chronic pain; F14.129 Cocaine abuse with intoxication, unspecified; F11.10 Opioid abuse, uncomplicated; I10 Essential (primary) hypertension; D64.9 Anemia, unspecified; Z79.82 Long term (current) use of aspirin; L89.156 Pressure-induced deep tissue damage of sacral region; L89.626 Pressure-induced deep tissue damage of left heel; L89.616 Pressure-induced deep tissue damage of right heel; Z68.20 Body mass index [BMI] 20.0-20.9, adult
CPT/HCPCS: 36415; 36600; 71045; 80048; 80053; 80061; 80307; 82553; 82803; 83880; 84443; 85007; 85025; 85379; 86140; 87081; 87635; 93005; 96361; 96374; 97802; 99285; J7030